=== PATIENT | female | born 1995 | race Caucasian/White ===

== ENCOUNTER → 2017-10-24 08:28 | Outpatient (CLI) | payer OTHER, SELFPAY ==
[2017-10-24 08:57] LABS: Hematocrit 38.3 % (37-47); Hemoglobin 12.6 g/dl (12.0-15.0); Mean Corp Hgb Conc 32.9 g/gl (32-36); Mean Corpuscular Hgb 28.7 pg (27.0-32.0); Mean Corpuscular Volume 87.2 fL (81-99); Mean Platelet Vol. 11.2 fl (6.2-12.0); Platelet Count 163 K/mm3 (150-450); RBC Distribution Width CV 12.4 % (11.6-14.6); RBC Distribution Width SD 40.1 fl (35.1-43.9); Red Blood Count 4.39 M/mm3 (4.2-5.4); White Blood Count 4.7 K/mm3 (4.4-11.0)
[2017-10-24 08:58] LABS: Scan Indicated on CBC? Y/N NO
[2017-10-24 09:09] LABS: Anion Gap 6 (5-15); BUN 12 mg/dL (7-18); BUN/Creat Ratio 20.8 RATIO (10-20); Calcium,Total 8.8 mg/dL (8.5-10.1); Chloride 109 mmol/L (98-107); Creatinine, Serum 0.58 mg/dL (0.55-1.02); EST Glomerular Filtration Rate 139 mL/min (>60); Est Glom Filt Rate - Afr Amer 168 mL/min (>60); Glucose 87 mg/dL (74-106); Sodium Level 143 mmol/L (136-145)
[2017-10-24 09:14] LABS: Pregnancy, Serum, hCG Quali. NEGATIVE Negative (0-9 Nonpreg)
--- NOTE | 2017-10-24 13:05 | PCM.TILTTABL ---
- Summary Pre Test Resting HR: 85 Pre Test Resting BP: 101/69 Minimum Test HR: 68 Maximum Test HR: 130 Minimum Test BP: 76/0 Maximum Test BP: 101/69 Physician Tilt Table Report - Patient's Physicians Primary Care Physician: Denilson Mcnair Indications/Diagnosis: Syncope Procedure Comments: Was brought into the noninvasive lab and the resting EKG demonstrated normal sinus rhythm with a rate of 78 bpm. The resting blood pressure was 106/68 mmHg. The patient was then put up in the head upright tilt position. After approximately 10 minutes the patient was noted to become pale and dropped her pressure to 76 cm of mercury as well as a heart rate of 110 bpm. Her heart rate then declined to approximately 60 bpm patient became pale and was put back to baseline and given intravenous fluids with improvement in the heart rate and blood pressure back to normal. In conclusion the heart rate was 87 bpm with a blood pressure 97/68 mmHg. Summary: Abnormal tilt table test with evidence of vasodepressor syncope.
[2017-10-24 13:16] VITALS: BP 101/69; BP 76/0
== END ==
PROVIDERS: Family Provider Family Medicine; PCP Family Medicine; Visit Provider Internal Medicine Cardiovascular Disease
DX: R55 Syncope and collapse (principal); R00.2 Palpitations
CPT/HCPCS: 36415; 80048; 84703; 85027; 93660; J7030; A4216

== ENCOUNTER → 2017-10-30 15:08 | Outpatient (CLI) | payer OTHER, SELFPAY ==
[2017-10-30 18:35] LABS: ALB/GLOB Ratio 1.3 RATIO (0.9-2.4); AST(SGOT) 17 U/L (15-37); Alanine Aminotransfer ALT/SGPT 21 U/L (13-56); Albumin, Serum 4.3 g/dL (3.2-5.0); Alkaline Phosphatase 51 U/L (45-117); Anion Gap 10 (5-15); BUN 11 mg/dL (7-18); BUN/Creat Ratio 19.6 RATIO (10-20); CRP < 2.90 mg/L (0.0-3.0); Calcium,Total 9.1 mg/dL (8.5-10.1); Chloride 105 mmol/L (98-107); Creatinine, Serum 0.56 mg/dL (0.55-1.02); EST Glomerular Filtration Rate 144 mL/min (>60); Est Glom Filt Rate - Afr Amer 174 mL/min (>60); Globulin 3.3 g/dL (2.2-4.2); Glucose 83 mg/dL (74-106); Potassium 3.6 mmol/L (3.5-5.1); Protein, Total 7.6 g/dL (6.4-8.2); Rheumatoid Factor < 10.0 IU/mL (<15); Sodium Level 140 mmol/L (136-145); Thyroid Stim Hormone (TSH) 1.66 uIU/mL (0.358-3.74)
[2017-10-30 18:38] LABS: Erythrocyte Sedimentation Rate 1 mm/hr (0-20); Vitamin D,25 Hydroxy 34.3 ng/mL (29.95-100.01)
[2017-11-01 15:27] LABS: ANTINUCLEAR ANTIBODIES DIRECT Negative (Negative)
== END ==
PROVIDERS: Family Provider Family Medicine; PCP Family Medicine; Visit Provider Family Medicine
DX: R53.83 Other fatigue (principal)
CPT/HCPCS: 36415; 80053; 82306; 82533; 84443; 85652; 86038; 86140; 86431

== ENCOUNTER → 2017-12-27 15:44 | Outpatient (CLI) | payer OTHER, SELFPAY ==
[2017-12-27 17:55] LABS: Anion Gap 7 (5-15); BUN 8 mg/dL (7-18); BUN/Creat Ratio 12.3 RATIO (10-20); Calcium,Total 8.9 mg/dL (8.5-10.1); Chloride 106 mmol/L (98-107); Creatinine, Serum 0.65 mg/dL (0.55-1.02); EST Glomerular Filtration Rate 121 mL/min (>60); Est Glom Filt Rate - Afr Amer 147 mL/min (>60); Glucose 72 mg/dL (74-106); Potassium 3.6 mmol/L (3.5-5.1); Sodium Level 141 mmol/L (136-145)
== END ==
PROVIDERS: Internal Medicine Cardiovascular Disease; Family Provider Family Medicine; PCP Family Medicine; Visit Provider Family Medicine
DX: I34.1 Nonrheumatic mitral (valve) prolapse (principal); R00.2 Palpitations; R55 Syncope and collapse
CPT/HCPCS: 36415; 80048

== ENCOUNTER → 2019-04-22 | Outpatient (CLI) | payer OTHER, SELFPAY ==
[2018-08-11 13:04] VITALS: BMI 20.9
--- NOTE | 2019-04-22 09:57 | RAD_ITS ---
STUDY: X-RAY CHEST REASON FOR EXAM: Female, 24 years old. Chest pain/pressure TECHNIQUE: 2 PA and lateral views of the chest. COMPARISON: 2010 FINDINGS: The lungs are clear and expanded. There is no demonstrated pleural abnormality. Normal size heart. Normal mediastinum and jadyn. Normal visualized pulmonary arteries. Normal visualized aortic arch and descending thoracic aorta. Normal visualized thoracic spine. Normal visualized ribs, clavicles, and shoulders. There is no demonstrated abnormality of the visualized soft tissue structures of the upper abdomen. RAD/Chest PA and Lateral IMPRESSION: Normal x-ray examination of the chest. Electronically Signed: Gil Matson MD at 16:56 EDT , Service support ,
== END | disposition home or self-care (01) ==
LOC: MTRAD 09:54
PROVIDERS: Family Provider Family Medicine; PCP Family Medicine; Referring Provider Family Medicine; Visit Provider Family Medicine
DX: J45.901 Unspecified asthma with (acute) exacerbation (principal)
CPT/HCPCS: 71046

== ENCOUNTER → 2019-07-07 15:06 | Outpatient (CLI) | payer OTHER, SELFPAY ==
[2018-08-11 13:04] VITALS: BMI 20.9
[2019-07-07 17:48] LABS: Vitamin D,25 Hydroxy 19.1 ng/mL (29.95-100.01)
[2019-07-07 18:02] LABS: Anion Gap 6 (5-15); BUN 10 mg/dL (7-18); BUN/Creat Ratio 17.2 RATIO (10-20); Calcium,Total 9.1 mg/dL (8.5-10.1); Chloride 111 mmol/L (98-107); Creatinine, Serum 0.58 mg/dL (0.55-1.02); EST Glomerular Filtration Rate 136 mL/min (>60); Est Glom Filt Rate - Afr Amer 165 mL/min (>60); Glucose 85 mg/dL (74-106); Potassium 3.9 mmol/L (3.5-5.1); Sodium Level 144 mmol/L (136-145)
== END ==
PROVIDERS: Family Provider Family Medicine; PCP Family Medicine; Referring Provider Family Medicine; Visit Provider Family Medicine
DX: E55.9 Vitamin D deficiency, unspecified (principal); R55 Syncope and collapse
CPT/HCPCS: 36415; 80048; 82306

== ENCOUNTER → 2020-12-22 | Outpatient (CLI) | payer OTHER, SELFPAY ==
[2020-08-31 14:23] VITALS: BMI 21.1
== END | disposition home or self-care (01) ==
PROVIDERS: PCP Family Medicine; Referring Provider Family Medicine; Visit Provider Family Medicine
DX: Z71.89 Other specified counseling (principal)
CPT/HCPCS: 87635; U0002

== ENCOUNTER → 2021-03-15 10:05 | Outpatient (CLI) | payer OTHER, SELFPAY ==
[2020-08-31 14:23] VITALS: BMI 21.1
[2021-03-15 12:25] LABS: Erythrocyte Sedimentation Rate < 1 mm/hr (0-30)
[2021-03-15 12:27] LABS: Absolute Lymphocyte Count 2.19 X10^3/uL (0.83-4.51); Absolute Neutrophil Count 4.3 X10^3/uL (2.0-7.7); Basophil# 0.04 X10^3/uL; Basophil% 0.6 % (0-1); Eosinophil# 0.04 X10^3/uL; Eosinophils% 0.6 % (0-5); Hematocrit 40.2 % (37-47); Hemoglobin 13.2 g/dL (12.0-15.0); Lymphocyte # 2.19 X10^3/ul (0.83-4.51); Mean Corp Hgb Conc 32.8 g/dL (32-36); Mean Corpuscular Hgb 28.5 pg (27.0-32.0); Mean Corpuscular Volume 86.8 fL (81-99); Mean Platelet Vol. 12.2 fl (6.2-12.0); Monocyte# 0.27 X10^3/uL; Monocyte% 3.9 % (0-10); NRBC Flagged by Analyzer 0 % (0-5); Neutrophil # 4.27 X10^3/uL (2.7-7.7); Neutrophil % 62.5 % (47-70); Platelet Count 212 K/mm3 (150-450); RBC Distribution Width CV 12.2 % (11.6-14.6); RBC Distribution Width SD 39.1 fl (35.1-43.9); Red Blood Count 4.63 M/mm3 (4.2-5.4); White Blood Count 6.8 K/mm3 (4.4-11.0)
[2021-03-15 12:30] LABS: Internal QC Validated? YES +Cl - CLEAR BKGD; Pregnancy, Serum, hCG Quali. NEGATIVE Negative
[2021-03-15 12:41] LABS: Vitamin B12 232 pg/mL (211-911); Vitamin D,25 Hydroxy 70.6 ng/mL
[2021-03-15 12:53] LABS: ALB/GLOB Ratio 1.1 RATIO (0.9-2.4); AST(SGOT) 16 U/L (15-37); Alanine Aminotransfer ALT/SGPT 18 U/L (13-56); Albumin, Serum 3.7 g/dL (3.2-5.0); Alkaline Phosphatase 45 U/L (45-117); Anion Gap 6 (5-15); BUN 9 mg/dL (7-18); BUN/Creat Ratio 12.8 RATIO (10-20); Calcium,Total 8.5 mg/dL (8.5-10.1); Chloride 107 mmol/L (98-107); EST Glomerular Filtration Rate 108 mL/min (>60); Est Glom Filt Rate - Afr Amer 131 mL/min (>60); Ferritin 24 ng/mL (8-252); Globulin 3.3 g/dL (2.2-4.2); Glucose 83 mg/dL (74-106); Iron 118 ug/dL (50-170); Potassium 3.9 mmol/L (3.5-5.1); Sodium Level 140 mmol/L (136-145); Thyroid Stim Hormone (TSH) 3.67 uIU/mL (0.358-3.74)
[2021-03-16 16:09] LABS: Endomysial Antibody IgA Negative (Negative)
[2021-03-17 11:07] LABS: Deamidated Gliadin IgA 6 units (0-19); Deamidated Gliadin IgG 3 units (0-19); Immunoglobulin A 97 mg/dL (87-352); t-Transglutaminase IgA <2 U/mL (0-3)
== END ==
PROVIDERS: PCP Family Medicine; Visit Provider Family Medicine
DX: R53.83 Other fatigue (principal); R11.0 Nausea
CPT/HCPCS: 80053; 82306; 82607; 82728; 82784; 83516; 83540; 84443; 84703; 85025; 85652; 86255

== ENCOUNTER 2021-08-28 11:26 | Outpatient (CLI) | payer BC, SELFPAY ==
[2021-08-30 20:20] LABS: HPV Reflexed? NOT INDICATED
== END 2021-08-28 23:59 | disposition short-term general hospital (02) ==
LOC: LABSPEC 11:27
PROVIDERS: PCP Family Medicine; Referring Provider Obstetrics & Gynecology; Visit Provider Obstetrics & Gynecology
DX: Z12.4 Encounter for screening for malignant neoplasm of cervix (principal)
CPT/HCPCS: 88175; G0145

== ENCOUNTER 2021-09-12 07:53 | Outpatient (CLI) | payer BC, SELFPAY ==
--- NOTE | 2021-09-12 07:57 | AAVD_ITS ---
Reason For Study: Abdominal pulsatile mass Aorta Measurements Aorta Doppler Measurements Proximal aorta measures1.31 x 1.32cm. in cross- Peak systolic flow velocities within the proximal sectional axis. aorta measure 144 cm/sec. Proximal aorta measures1.35cm. in longitudinal Peak systolic flow velocities within the mid aorta axis. measure 122 cm/sec. Mid aorta measures1.23 x 1.26cm. in cross- Peak systolic flow velocities within the distal sectional axis. aorta measure 91.3 cm/sec. Mid aorta measures1.20cm. in longitudinal axis. Distal aorta measures1.15cm. in cross-sectional axis. Left Iliac Artery Left iliac artery measures 0.75 x 0.76 cm. in the cross-sectional axis. Left iliac artery measures 0.77 cm. in the longitudinal axis. Peak systolic velocity in the left iliac artery measures 128.6 cm/sec. Right Iliac Artery Right iliac artery measures 0.63 x 0.63 cm. in the cross-sectional axis. Right iliac artery measures 0.64 cm. in the longitudinal axis. Peak systolic velocity in the right iliac artery measures 141.7 cm/sec. Procedure Aorta IVC Iliac vasculature or bypass grafts 06832. Exam performed in department. VL/Abd Aortic/IVC Duplex scan Interpretation Summary Maximal aortic diameter proximally at 1.31 x 1.32 cm in diameter Increased flow rate in the proximal abdominal aorta at 144 cm/s flow with no pl aque identified. Left common iliac 0.75 x 0.76 cm diameter which is normal Right common neck 0.63 x 0.63 cm in diameter which is normal Ordering Physician: Richard Mcmanus Referring Physician: Rigoberto Mcnair MD Performed By: Tri Nelson RVT
== END 2021-09-12 23:59 | disposition short-term general hospital (02) ==
PROVIDERS: PCP Family Medicine; Referring Provider Internal Medicine Cardiovascular Disease; Visit Provider Internal Medicine Cardiovascular Disease
DX: R19.00 Intra-abdominal and pelvic swelling, mass and lump, unspecified site (principal)
CPT/HCPCS: 93978

== ENCOUNTER → 2022-03-15 | Outpatient (CLI) | payer BC, SELFPAY ==
[2022-03-15 17:15] LABS: Amphetamine Urine VISTA NEGATIVE (<1000 ng/mL); Barbiturate Urine VISTA NEGATIVE (< 200 ng/mL); Benzodiazepine Urine VISTA NEGATIVE (< 200 ng/mL); Cocaine Urine VISTA NEGATIVE (< 300 ng/mL); Ecstacy Urine VISTA NEGATIVE (< 500 ng/mL); Methadone Urine VISTA NEGATIVE (< 300 ng/mL); PCP Urine VISTA NEGATIVE (< 25 ng/mL); THC Urine VISTA NEGATIVE (< 50 ng/mL); Vista UDS pH Range 8
[2022-03-19 01:06] LABS: Chlamydia By Nucleic Acid AMP Negative (Negative)
[2022-03-19 09:15] LABS: Gonococcus By Nucleic Acid AMP Negative (Negative)
== END | disposition home or self-care (01) ==
LOC: LABSPEC 16:10
PROVIDERS: PCP Family Medicine; Visit Provider Obstetrics & Gynecology
DX: Z34.90 Encounter for supervision of normal pregnancy, unspecified, unspecified trimester (principal)
CPT/HCPCS: 80307; 87086; 87088; 87491; 87591

== ENCOUNTER 2022-04-10 12:29 | Day surgery (SDC) | payer BC, SELFPAY ==
--- NOTE | 2022-04-10 09:19 | HP.PCM_ITS ---
History and Physical [facility] [address] [place] [address] OFFICE VISIT Date of Service:? 04/09/22 MR#: [id number] Acct: [id number] Name:EMY FERNANDES Rep #: [id number] : 1995 ? ? Provider: Dr. Kallie Estrada MD Age/Sex:? 27/F ? ? Location: [facility] [place] Status: Signed Intake Vital Signs ? 04/09/2216:04 04/09/2216:04 Height 5 ft 6 in 5 ft 6 in Weight: 139 lb ? BMI 22.4 ? BP 106/64 ? Intake Visit Reasons:?12 WK OB Chief Complaint: est ob [employer] Assessment Required: No Is patient in pain?: No Allergies pineapple Allergy (Mild, Verified 03/09/22 12:06) otherdiphenhydramine [From Benadryl] Adverse Reaction (Severe, Verified 03/09/22 12:06) Other Medications albuterol sulfate 90 mcg/actuation aerosol inhaler 1 - 2 puff inhalation Q6H PRN PRN Asthma 09/09/16 [History Confirmed 04/09/22] mometasone 220 mcg/actuation(120 doses)breath activated powder inhaler (Asmanex Twisthaler) 2 inh inhalation QPM PRN 08/11/18 [History Confirmed 04/09/22] cetirizine 10 mg capsule (Zyrtec) 10 mg PO DAILY PRN 08/31/19 [History Confirmed 04/09/22] cholecalciferol (vitamin D3) 50 mcg (2,000 unit) capsule 6,000 unit PO DAILY 08/31/19 [History Confirmed 04/09/22] fluticasone propionate 50 mcg/actuation nasal spray,suspension 50 mcg intranasal DAILY PRN 08/31/19 [History Confirmed 04/09/22] famotidine 20 mg tablet (Pepcid) 20 mg PO DAILY 07/28/20 [History Confirmed ] fludrocortisone 0.1 mg tablet 0.2 mg PO DAILY #180 tabs 11/06/21 [Rx Confirmed 04/09/22] PNV 178-FA 180 mcg-om3 35 mg-dha 25 mg-epa 5 mg-fish oil chew tablet tab PO 03/09/22 [History Confirmed 04/09/22] Last Menstral Period: 01/16/22 Zika: Zika virus screening: Negative : No PFSH PFSH Medical History? Abdominal pulsatile mass Anxiety Asthma GERD (gastroesophageal reflux disease) Mitral valve prolapse Palpitations Syncope and collapse Surgical History? Hx of appendectomy Family History? Grandmother CAD (coronary artery disease) Pancreatic cancerFather Mitral valve prolapse Social History? adopted:? No household members:? spouse housing:? house number of children:? 0 current occupational status:? 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 No pets and animals:? Yes pets and animals: dog(s) leisure activities:? exercise history of recent travel:? No sexually active:? Yes Smoking Status:? Never smoker alcohol intake:? never substance use type:? does not use diet:? gluten free well-balanced diet:? daily or most days caffeine:? Yes Type: coffee Number of servings: 1 eating out:? rarely or never what type of physical activity do you participate in:? walking and aerobics frequency:? daily duration:? 15-30 minutes/day estrella/judaism:? Christianity seatbelt use:? always do you feel safe at home:? 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 ? ? 1 ? Elective abortions ? Hx Para ? ? ? 0 ? Spontaneous abortions ? Hx # Term Pregnancies ? Ectopic pregnancies ? Hx # Pregnancies ? Multiple births ? # of living children ? HPI 12 WK OB Details: EMY JARVIS is a 27 year old who presents for routine OB visit. upon evaluation bedside ultrasound confirmed missed is made.? patient denies any miscarriage symptoms or bleeding abnormal cramping. OB Visit SUJEY Calculator ? Estimated Delivery Date Method Current WG Current Estimate 10/23/22 LMP (Certain) 11w 6d Expected Delivery Route/Plan Labor Preferences- CB/BF classes: [] labor support person: [] labor intervention preferences: [] pain management options preferred: [] cut cord/dad catch: [] : [] PP control planned: [] discussed possible routes of delivery and associated risks: [] special requests: [] Specific Issue/Plans Covid status: discussed Flu vaccine:discussed Tdap vaccine: [] Rhogam: [] LARC form signed: [] Problem list reviewed and updated with the most current plan of care details and appropriate orders placed.? Relevant counseling for the gestational age provided. Continue routine care and follow up unless otherwise noted in visit notes/problem list details Initial Weight:?Not Recorded Date -?-?-?-?-?-?-?-?-?-?-?-?- EGA Weight BP Urine Prot -?-?-?-?-?-?-?-?-?-?-?-?- Glucose FHR FuHt Pres Dilation -?-?-?-?-?-?-?-?-?-?-?-?- Effaced St Visit Note 03/15/22-?-?-?-?-?-?-?-?-?-?-?-?- 8w 2d 141 lb 119/80 -?-?-?-?-?-?-?-?-?-?-?-?- ? 160 ? ? -?-?-?-?-?-?-?-?-?-?-?-?- ? ? Sm- CRL cons with LMP Sm- CRL 1.49cm cons with LMP 04/09/22-?-?-?-?-?-?-?-?-?-?-?-?- 11w 6d 139 lb 106/64 -?-?-?-?-?-?-?-?-?-?-?-?- ? -?-?-?-?-?-?-?-?-?-?-?-?- ? ? SM- no vb cramping- Ultrasound done and CRL 8w6d measuring with no FHT and no color doppler flow seen. ACOG First Trimester First Trimester: Discussed Diagnostics Diagnostics Diagnostics: ?? ? Hgb 13.2 g/dL (12.0-15.0) ?? ? Hct 40.2 % (37-47) ?? ? Chlamydia DNA (MAGNO) Negative? (Negative) ?? ? N.gonorrhoeae DNA (MAGNO) Negative? (Negative) Details: HIV: Urine Culture: Sequential Screen: NIPT Screen: ROS Const Denies excessive sweating, Denies fatigue, Denies night sweats, Denies weight gain and Denies weight loss ENT Reports system reviewed and no additional complaints, except as documented Card Denies chest pain and Denies dyspnea Resp Denies cough and Denies dyspnea GI Reports as per HPI, Denies abdominal pain, Denies constipation, Denies nausea and Denies vomiting Denies nipple discharge, Denies urinary frequency, Denies urinary incontinence, Denies urinary hesitancy, Denies urinary urgency, Denies vaginal discharge, Denies vaginal dryness, Denies vaginal odor and Denies vaginal pruritus Musc Denies arthralgias, Denies back pain and Denies muscle weakness Skin/Breast Denies alopecia, Denies change in hair, Denies dry skin, Denies breast mass, Denies breast pain, Denies breast skin changes and Denies nipple discharge Neuro Yes system reviewed and no additional complaints, except as documented Psych Reports system reviewed and no additional complaints, except as documented Endo Denies cold intolerance, Denies excessive sweating, Denies fatigue, Denies heat intolerance and Denies polydipsia Boubacar/Lymph Denies easy bleeding, Denies easy bruising and Denies lymphadenopathy Exam Const General: cooperative, healthy appearing, comfortable, no acute distress and well developed Orientation: alert [facility] Head: normal to inspection and normocephalic Ears: hearing grossly normal bilaterally and external ears normal Nose: external nose normal and nares normal Face and sinus: normal facial exam Neck Neck: normal visual inspection and no lymphadenopathy Thyroid: thyroid normal Chest Chest palpation & inspection: normal inspection of the chest Resp Effort & Inspection: normal respiratory effort GI Inspection: normal to inspection and non-distended Palpation: soft and no hepatosplenomegaly Musc Other: gross motor intact no deficits, full bilateral strength Skin General: no rashes or lesions noted Neuro General: patient alert, patient awake, moves all extremities and no focal motor deficits Motor: muscle tone normal throughout Extrem General: normal to inspection and no pedal edema Psych Appearance: grossly normal Mental Status: mental status grossly normal Affect: normal affect Speech and Movement: speech and movement normal Coding Level of Care Code Off vis,est,level 4 Diagnoses Mitral valve disorder during , antepartum? O99.419; I05.9 ? Z3A.11 ? ? ? Weeks of gestation: 11 weeks Supervision of high risk , antepartum? O09.90 Missed ? O02.1 Assessment and Plan Assessment and Plan (1) Mitral valve disorder during , antepartum: ?Status:?Acute ?Comment: mitral valve prolapse, syncope, on low dose fludrocortisone- discussed switching to another medication if possible, will discuss with cardio.? Pt encouraged to stop taking rx (2) : ?Status:?Acute ?Qualifiers: ?Weeks of gestation:?11 weeks? Qualified Code(s):?Z3A.11 - 11 weeks gestation of ?Comment: discussed NIPT & Carrier testing (3) Supervision of high risk , antepartum: ?Status:?Acute ?Comment: , SUJEY 10/23/22, Spouse Patel (4) Missed : ?Status:?Acute ?Comment: discussed medical vs surgical options. Plan reivewed options of medical vs surgical management.? patient to decide will call her tomorrow. 04/09/22 2043 <Electronically signed by Kallie Estrada MD> Date Kallie Estrada MD Cosigner Signature: Date (if applicable) ? CC: ? ~ UPDATE- I have seen the patient and performed any clinically relevant updates to the history and physical exam. Kallie Estrada MD
[2022-04-10] MEDS: Doxycycline 100 MG CAPSULE PO (11:00)
[2022-04-10 13:38] VITALS: BP 107/73; PULSE 80; RESP 16; TEMP 37.6; O2SAT 100; BMI 21.7
[2022-04-10 13:39] LABS: Hematocrit 39.9 % (37-47); Hemoglobin 13.8 g/dL (12.0-15.0); Mean Corp Hgb Conc 34.6 g/dL (32-36); Mean Corpuscular Hgb 29.5 pg (27.0-32.0); Mean Corpuscular Volume 85.3 fL (81-99); Mean Platelet Vol. 11.7 fl (6.2-12.0); Platelet Count 199 K/mm3 (150-450); RBC Distribution Width CV 12.4 % (11.6-14.6); RBC Distribution Width SD 38.1 fl (35.1-43.9); Red Blood Count 4.68 M/mm3 (4.2-5.4); White Blood Count 8.7 K/mm3 (4.4-11.0)
[2022-04-10] MEDS: Lactated Ringers 1,000 ML 15 ML IV (13:52)
[2022-04-10] MEDS: Lidocaine 1% (20 ml mdv) 20 ML Vial (15:18)
--- NOTE | 2022-04-10 15:38 | PCM.OPRPT ---
Problems Associated Problem List Diagnoses (1) Missed : Report of Operation Date of Procedure: 04/10/22 Pre-Operative Diagnosis: see problem list Post-Operative Diagnosis: same Surgery/Procedure Performed:: Suction dilation and curettage Description of Surgical Findings:: no FHT present, Nonviable 9 weeks Surgeon: Kallie Estrada ediscovery project manager: None Type of Anesthesia: Local MAC Special Medications: none Specimen's removed: POC Drains: none Estimated Blood Loss (mL): 100 Fluids Replaced: crystalloid Description of Procedure: Patient was taken to the operating room and placed under MAC local anesthesia. She was prepped and draped in the normal sterile fashion the dorsal lithotomy position. Bladder was drained of clear urine and anterior lip of the cervix was grasped and the uterus sounded to 10cm. Cervix was progressively dilated to allow passage of a 10mm suction curette. Progressive passes were made removing the retained products of conception without complication. Sharp curettage confirmed complete removal of the retained products. All instruments were removed from the vagina and excellent hemostasis was noted and the patient was taken to recovery in stable condition. Grafts/Implants Used: none Complications none Admit VTE Documentation VTE Present on Admission: No VTE Mechan Device Prophylaxis: SCD's Multi Select Codes Urinary/Genital Urinary/Genital CPT Codes: 05762 Surg Trtmt missed Ab 1TM
--- NOTE | 2022-04-10 15:41 | DCINST_ITS ---
Discharge Instructions Procedure D&C Diet Discharge Diet: No restrictions Activity Discharge Activity: Return to Normal Activity, May Shower and May Take a Tub Bath (after 1 week) May resume sexual activity in: 1-2 weeks Weight Bearing Status: Weight bearing as tolerated Lifting Restrictions: none Dressing / Incision Call your doctor if you observe: Fever of 101 or Higher, Using more than 1 pad per hour, Shortness of breath and Uncontrolled pain Follow Up Care Please Follow Up With: Kallie Estrada MD When: Call [phone] to schedule appointment. Test Results: Test results from this visit will be discussed in further detail at your follow- up appointment, if applicable. Discharge Plan Admission Attending Provider: Kallie Estrada Primary Care Provider: Denilson Mcnair Discharge Orders/Prescriptions Prescriptions: No Action mometasone 220 mcg (120 doses) breath activated powder inhaler 220 mcg (120 doses) aerosol powdr breath activated 2 inh INHALATION QPM PRN fluticasone propionate 50 mcg/actuation spray,suspension 50 mcg INTRANASAL DAILY PRN cholecalciferol (vitamin D3) 50 mcg (2,000 unit) capsule 6,000 unit PO DAILY Zyrtec 10 mg capsule 10 mg PO DAILY PRN famotidine [Pepcid] 20 mg tablet 20 mg PO DAILY PNV [id number] 180 mcg-35 mg- 25 mg-5 mg tablet,chewable PO albuterol sulfate 1 INHALER inhaler 1 - 2 puff INHALATION Q6H PRN PRN (Reason: Asthma) fludrocortisone 0.1 mg tablet 0.2 mg PO DAILY Qty: 180 4RF Referrals / Follow Up: Denilson Mcnair MD [Primary Care Provider] - Disposition Disposition (needs filled in before D/C Order can be placed): Home, Self Care
--- NOTE | 2022-04-10 15:45 | POC_PTH ---
PATIENT: EMY JARVIS LOC: [facility] [place] U#:[id number] AGE/SX: 27/ ROOM: RE04/10/[address]: Dr. Kallie Estrada MD : 1995 BED: DIS: 04/10/2022 SPEC #: [id number] RECD: 04/10/22 16:04 STATUS: ALYCIA WALLER #: [id number] RICK: 04/10/22 15:[address]: Kallie Estrada DEPT: SURGICAL PATHOLOGY RECD BY: Caitie Hutchison ENTERED: 04/11/22 11:50 SP TYPE: PROD CONC OTHR DR: Dr. Rigoberto Mcnair MD Tissues: Product of conception, NOS Procedures: Surgery Specimen Level IV HEADER OPERATION: Dilation and curettage, suction PRE-OP DIAGNOSIS: Missed TISSUE SUBMITTED: Products of conception MICROSCOPIC DIAGNOSIS Endometrium, curettage: Chorionic villi, decidualized stroma and trophoblastic cells consistent with products of conception. See Comment. AM:am COMMENT Significant number of villi show hydropic change. A partial mole cannot be ruled out. Clinical correlation and appropriate follow up are necessary. Case has been reviewed in consultation with Dr. Arellano who concurs with the above diagnosis. IDC:SJ MICROSCOPIC DESCRIPTION Slides are reviewed. GROSS DESCRIPTION Received is one container labeled with the patient name and designated products of conception. The specimen consists an oriented fragment of rubbery lopez-pink soft tissue measuring 7.0 x 7.0 x 3.5cm and weighing 85.0grams. The specimen is inked as follows: anterior-yellow, posterior-black, medial-red, lateral-orange, super-blue and inferior-green. Sectioning reveals rubbery pin-white cut surfaces. No distinct mass lesion is identified. Rn Security sections are submitted in 10 cassettes after additional fixation as follows: 1&2-inked margins, 3-10 veterans service representative sections taken medial to lateral. / AM:james 04/11/22 TC:5 CPT:86571
[2022-04-10 15:46] VITALS: BP 107/43; BP 92/69; PULSE 95; RESP 16; TEMP 36.6; O2SAT 100
[2022-04-10 15:50] VITALS: BP 103/69; BP 107/43; PULSE 85; RESP 16; O2SAT 100
[2022-04-10 15:55] VITALS: BP 106/68; BP 107/43; PULSE 73; RESP 16; O2SAT 100
[2022-04-10 16:05] VITALS: BP 107/43; BP 98/68; PULSE 91; RESP 16; TEMP 36.7; O2SAT 100
[2022-04-10 17:05] VITALS: BP 107/43; BP 93/62; PULSE 80; RESP 16; TEMP 37.2; O2SAT 100
== END 2022-04-10 17:05 | disposition home or self-care (01) ==
LOC: SDC 12:31 → AC 12:32
PROVIDERS: PCP Family Medicine; Referring Provider Obstetrics & Gynecology; Visit Provider Obstetrics & Gynecology
PROC: (CPT 59820; principal; 2022-04-10 15:30)
DX: O02.1 Missed abortion (principal); O99.411 Diseases of the circulatory system complicating pregnancy, first trimester; Z3A.11 11 weeks gestation of pregnancy; K21.9 Gastro-esophageal reflux disease without esophagitis; I05.9 Rheumatic mitral valve disease, unspecified; Z90.49 Acquired absence of other specified parts of digestive tract
CPT/HCPCS: 59820; 01965; 85027; 86850; 86900; 86901; 88305; J7120; J2405

== ENCOUNTER → 2022-06-20 | Outpatient (CLI) | payer BC, SELFPAY ==
[2022-06-20 13:58] LABS: hCG Titer Quant., Serum 199 mIU/mL (1-3)
== END | disposition home or self-care (01) ==
LOC: WOBLAB 12:54
PROVIDERS: PCP Family Medicine; Visit Provider Obstetrics & Gynecology
DX: N91.2 Amenorrhea, unspecified (principal)
CPT/HCPCS: 36415; 84702

== ENCOUNTER → 2022-06-22 | Outpatient (CLI) | payer BC, SELFPAY ==
[2022-06-22 13:51] LABS: hCG Titer Quant., Serum 439 mIU/mL (1-3)
== END | disposition home or self-care (01) ==
LOC: WOBLAB 12:44
PROVIDERS: PCP Family Medicine; Visit Provider Obstetrics & Gynecology
DX: N91.2 Amenorrhea, unspecified (principal)
CPT/HCPCS: 36415; 84702

== ENCOUNTER → 2022-07-03 | Outpatient (CLI) | payer BC, SELFPAY ==
--- NOTE | 2022-07-03 14:52 | US_ITS ---
STUDY: FIRST TRIMESTER OBSTETRICAL ULTRASOUND REASON FOR EXAM: Female, 27 years old. viability -- do at 6-7 weeks of gestation TECHNIQUE: Transvaginal US was obtained to better visualized the ovaries. TECHNICAL QUALITY: Adequate. PRIOR ULTRASOUND: None. FINDINGS: There is visualization of a single gestational sac in a normal intrauterine position. The mean sac diameter (MSD) measures 17 mm, indicating an estimated gestational age (EGA) of 6 weeks, 4 days. The gestational sac shape is within normal limits. There is two visualized yolk sac. The yolk sac A measures 3 mm. Yolk sac for B is 3mm. The placenta is non-visualized. Due to early gestation, the placenta is not seen. There is visualization of a live embryo. The crown-rump length (CRL) measures 5 mm, indicating an estimated gestational age (EGA) of 6 weeks, 3 days. There is demonstrated cardiac activity with a heart rate of 107 bpm. The estimated gestation age (EGA) by LMP is 6 weeks, 0 days. The estimated date of delivery (SUJEY) by LMP is 7.4.23. The estimated gestation age (EGA) by US is 6 weeks, 4 days. The estimated date of delivery (SUJEY) by US is 6.30.23. The uterus measures 7.3 cm. There is no demonstrated uterine fibroid. The cervix is closed. The right ovary measures 2.7 cm. There is no right ovarian cyst. There is no visualized right adnexal mass or complex lesion. The left ovary measures 3.4 cm. There is no left ovarian cyst. There is no visualized left adnexal mass or complex lesion. There is no fluid in the cul de sac. US/Transvaginal w/Preg US IMPRESSION: There is a single live intrauterine with a heart rate of 107 bpm. Single gestational sac. Two yolk sac. No visible 2nd fetus. Electronically Signed: John Walker MD at 16:47 EST ,
== END | disposition home or self-care (01) ==
LOC: US 14:50
PROVIDERS: PCP Family Medicine; Referring Provider Obstetrics & Gynecology; Visit Provider Obstetrics & Gynecology
DX: Z87.59 Personal history of other complications of pregnancy, childbirth and the puerperium (principal); Z3A.01 Less than 8 weeks gestation of pregnancy
CPT/HCPCS: 76817

== ENCOUNTER → 2022-07-10 | Outpatient (CLI) | payer BC, SELFPAY ==
--- NOTE | 2022-07-10 12:37 | US_ITS ---
STUDY: FIRST TRIMESTER OBSTETRICAL ULTRASOUND REASON FOR EXAM: Female, 27 years old viability LMP: TECHNIQUE: Transabdominal TECHNICAL QUALITY: Adequate. PRIOR ULTRASOUND: None. FINDINGS: There is visualization of a gestational sac in a normal intrauterine position. The mean sac diameter (MSD) measures 2.66 cm, indicating an estimated gestational age (EGA) of 7 weeks, 5 days. The gestational sac shape is within normal limits. There is a visualized yolk sac. The placenta is non-visualized. There is visualization of a live embryo. The crown-rump length (CRL) measures 1 cm, indicating an estimated gestational age (EGA) of 7 weeks, 1 days. There is demonstrated cardiac activity with a heart rate of 137 bpm. The estimated gestation age (EGA) by LMP is 7 weeks, 0 days. The estimated date of delivery (SUJEY) by LMP is 02/26/2023. The estimated gestation age (EGA) by US is 7 weeks, 3 days. The estimated date of delivery (SUJEY) by US is 02/23/2023. The uterus measures 8.38 x 4.51 cm. There is no demonstrated uterine fibroid. The cervix is closed. The right ovary measures 3.22 x 1.43 cm tThere is no right ovarian cyst. There is no visualized right adnexal mass or complex lesion. The left ovary measures 2.56 x 1.89 cm. There is no left ovarian cyst. There is no visualized left adnexal mass or complex lesion. There is no fluid in the cul de sac. There is a second intrauterine gestational sac which contains a yolk sac but no pole. 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 Recommend clinical correlation and follow-up studies Electronically Signed: Geronimo Valenzuela MD at 21:08 EST ,
== END | disposition home or self-care (01) ==
LOC: US 12:35
PROVIDERS: PCP Family Medicine; Referring Provider Obstetrics & Gynecology; Visit Provider Obstetrics & Gynecology
DX: O36.80X0 Pregnancy with inconclusive fetal viability, not applicable or unspecified (principal)
CPT/HCPCS: 76817

== ENCOUNTER → 2022-07-18 | Outpatient (CLI) | payer BC, SELFPAY ==
[2022-07-18 15:07] LABS: Amphetamine Urine VISTA NEGATIVE (<1000 ng/mL); Barbiturate Urine VISTA NEGATIVE (< 200 ng/mL); Benzodiazepine Urine VISTA NEGATIVE (< 200 ng/mL); Cocaine Urine VISTA NEGATIVE (< 300 ng/mL); Ecstacy Urine VISTA NEGATIVE (< 500 ng/mL); Methadone Urine VISTA NEGATIVE (< 300 ng/mL); PCP Urine VISTA NEGATIVE (< 25 ng/mL); THC Urine VISTA NEGATIVE (< 50 ng/mL); Vista UDS pH Range 7
[2022-07-23 21:07] LABS: Chlamydia By Nucleic Acid AMP Negative (Negative)
[2022-07-24 14:56] LABS: Gonococcus By Nucleic Acid AMP Negative (Negative)
== END | disposition home or self-care (01) ==
LOC: LABSPEC 14:35
PROVIDERS: PCP Family Medicine; Visit Provider Obstetrics & Gynecology
DX: O09.90 Supervision of high risk pregnancy, unspecified, unspecified trimester (principal)
CPT/HCPCS: 80307; 87086; 87088; 87491; 87591

== ENCOUNTER → 2022-08-17 | Outpatient (CLI) | payer BC, SELFPAY ==
[2022-08-17 13:39] LABS: Absolute Lymphocyte Count 1.96 X10^3/uL (0.83-4.51); Absolute Neutrophil Count 6.4 X10^3/uL (2.0-7.7); Basophil# 0.03 X10^3/uL; Basophil% 0.3 % (0-1); Eosinophil# 0.05 X10^3/uL; Eosinophils% 0.6 % (0-5); Hematocrit 36.6 % (37-47); Hemoglobin 12.5 g/dL (12.0-15.0); Lymphocyte # 1.96 X10^3/ul (0.83-4.51); Lymphocyte % 22.6 % (19-41); Mean Corp Hgb Conc 34.2 g/dL (32-36); Mean Corpuscular Hgb 28.7 pg (27.0-32.0); Mean Corpuscular Volume 83.9 fL (81-99); Mean Platelet Vol. 11.7 fl (6.2-12.0); Monocyte# 0.26 X10^3/uL; NRBC Flagged by Analyzer 0 % (0-5); Neutrophil # 6.35 X10^3/uL (2.7-7.7); Neutrophil % 73.3 % (47-70); Platelet Count 203 K/mm3 (150-450); RBC Distribution Width CV 12.3 % (11.6-14.6); RBC Distribution Width SD 37.5 fl (35.1-43.9); Red Blood Count 4.36 M/mm3 (4.2-5.4); White Blood Count 8.7 K/mm3 (4.4-11.0)
[2022-08-17 15:44] LABS: HIV - WCH Non-Reactive (Nonreactive); Hepatitis B Surface Antigen Non-Reactive (Nonreactive); Hepatitis C Antibody Non-Reactive (Nonreactive); Rubella IgG Reactive (Nonreactive); Syphilis Antibodies Non-reactive
== END | disposition home or self-care (01) ==
LOC: WOBLAB 13:12
PROVIDERS: Obstetrics & Gynecology; PCP Family Medicine; Visit Provider Obstetrics & Gynecology
DX: Z34.90 Encounter for supervision of normal pregnancy, unspecified, unspecified trimester (principal)
CPT/HCPCS: 36415; 85025; 86703; 86762; 86780; 86803; 86850; 86900; 86901; 87340

== ENCOUNTER → 2022-09-17 | Outpatient (CLI) | payer BC, SELFPAY | END | disposition home or self-care (01) | PROVIDERS: PCP Family Medicine; Visit Provider Registered Nurse | DX: Z36.9 Encounter for antenatal screening, unspecified (principal) | CPT/HCPCS: 36415 ==

== ENCOUNTER → 2022-12-03 | Outpatient (CLI) | payer BC, SELFPAY ==
[2022-12-03 13:38] LABS: Absolute Lymphocyte Count 1.23 X10^3/uL (0.83-4.51); Absolute Neutrophil Count 6.6 X10^3/uL (2.0-7.7); Basophil# 0.02 X10^3/uL; Basophil% 0.2 % (0-1); Eosinophil# 0.04 X10^3/uL; Eosinophils% 0.5 % (0-5); Hematocrit 32.1 % (37-47); Hemoglobin 10.6 g/dL (12.0-15.0); Lymphocyte # 1.23 X10^3/ul (0.83-4.51); Mean Corpuscular Hgb 29.4 pg (27.0-32.0); Mean Corpuscular Volume 88.9 fL (81-99); Mean Platelet Vol. 12.5 fl (6.2-12.0); Monocyte# 0.29 X10^3/uL; Monocyte% 3.5 % (0-10); NRBC Flagged by Analyzer 0 % (0-5); Neutrophil # 6.55 X10^3/uL (2.7-7.7); Neutrophil % 80.1 % (47-70); Platelet Count 183 K/mm3 (150-450); RBC Distribution Width CV 13.1 % (11.6-14.6); RBC Distribution Width SD 42.5 fl (35.1-43.9); Red Blood Count 3.61 M/mm3 (4.2-5.4); White Blood Count 8.2 K/mm3 (4.4-11.0)
[2022-12-03 13:43] LABS: Glucose Challenge Gest 1H 50g 108 mg/dL (70-140)
[2022-12-03 14:22] LABS: HIV - WCH Non-Reactive (Nonreactive); Syphilis Antibodies Non-reactive
== END | disposition home or self-care (01) ==
LOC: WOBLAB 12:05
PROVIDERS: PCP Family Medicine; Visit Provider Obstetrics & Gynecology
DX: O09.90 Supervision of high risk pregnancy, unspecified, unspecified trimester (principal)
CPT/HCPCS: 36415; 82950; 85025; 86703; 86780

== ENCOUNTER 2023-01-15 20:50 | Outpatient (CLI) | payer BC, SELFPAY ==
[2023-01-15 21:04] VITALS: BMI 26.9
[2023-01-15 21:14] VITALS: PULSE 119; O2SAT 97
[2023-01-15 21:15] VITALS: BP 123/59; PULSE 109
[2023-01-15 21:25] VITALS: TEMP 36.6
[2023-01-15 22:00] LABS: Color, Urine Yellow (Yellow); Glucose, Dipstick Normal (Normal); Ketone-Dipstick 15 mg/dl (Negative); Leukocyte Esterase-Dipstick Negative /ul (Negative); Nitrite-Dipstick Negative (Negative); Occult Blood-Urine Negative /ul (Negative); Protein-Dipstick Negative (Negative); Specific Gravity, Urine 1.005 (1.002-1.030); Urine Bilirubin Dipstick Negative (Negative); Urine Clarity Sl. Cloudy (Clear); Urine Urobilinogen Normal (Normal)
--- NOTE | 2023-01-15 22:54 | OB.TRI.HP_ITS ---
HPI - General General Date of Service: 01/15/23 HPI Narrative EMY JARVIS, is a 27 F at 34 weeks who presents to L&D for complaints of mild-moderate contractions q 6-10 minutes apart that started earlier today. Maternal Data Information SUJEY Calculator Estimated Delivery Date Method Current WG Current Estimate 02/26/23 LMP (Certain) 34w 0d Final SUJEY: 02/26/23 Final SUJEY Source: [place] >20 weeks Gestational age: 34.0 weeks PFSH PFSH Medical History (Updated 01/15/23 @ 23:00 by Chanel Dean CNM) Abdominal pulsatile mass Anxiety Asthma Gastric reflux GERD (gastroesophageal reflux disease) Mild anemia Missed Mitral valve prolapse Non-smoker Palpitations Syncope and collapse Home Medications mometasone 220 mcg/actuation(120 doses)breath activated powder inhaler (Asmanex Twisthaler) 2 inh inhalation QPM PRN asthma 08/11/18 [History Last Taken Unknown] cholecalciferol (vitamin D3) 50 mcg (2,000 unit) capsule 6,000 unit PO DAILY 08/31/19 [History Last Taken 01/14/23 21:00] PNV 178-FA 180 mcg-om3 35 mg-dha 25 mg-epa 5 mg-fish oil chew tablet 1 tab PO DAILY 03/09/22 [History Last Taken 01/14/23 21:00] doxylamine succinate 25 mg tablet (Unisom (doxylamine)) 12.5 mg PO QHS PRN sleep aid 07/10/22 [History Last Taken 01/14/23 21:00] pyridoxine (vitamin B6) 25 mg tablet 25 mg PO DAILY 07/10/22 [History Last Taken 01/14/23 21:00] famotidine 40 mg tablet (Pepcid) 40 mg PO DAILY #90 tabs 08/16/22 [Rx Last Taken 01/14/23 21:00] ferrous sulfate 325 mg (65 mg iron) tablet 325 mg PO DAILY 12/07/22 [History Last Taken 01/14/23 18:00] Allergy/AdvReac Type Severity Reaction Status Date / Time pineapple Allergy Mild other Verified 01/15/23 21:20 diphenhydramine AdvReac Severe Other Verified 01/15/23 21:20 [From Ludin] Family History Grandmother CAD (coronary artery disease) Pancreatic cancer Father Mitral valve prolapse Surgical History Hx of appendectomy Hx of dilation and curettage Social History adopted: No household members: spouse housing: house number of children: 0 current occupational status: employed current occupation: [employer] current occupational exposures/hazards: No pets and animals: Yes pets and animals: dog(s) leisure activities: exercise history of recent travel: No sexually active: Yes Smoking Status: Never smoker alcohol intake: never substance use type: does not use diet: gluten free well-balanced diet: daily or most days caffeine: No eating out: rarely or never during the past year weight has: remained stable what type of physical activity do you participate in: bicycling frequency: daily duration: 15-30 minutes/day estrella/sabianist: [employer] seatbelt use: always do you feel safe at home: Yes additional social history: 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 Elective abortions Hx Para 0 Spontaneous abortions 1 Hx # Term Pregnancies Ectopic pregnancies Hx # Pregnancies Multiple births # of living children Visit Details Expected Delivery Route/Plan Labor Preferences- CB/BF classes: yes, took just breathe labor support person: patel labor intervention preferences: pain management options preferred: [] cut cord/dad catch: [] : [] PP control planned: [] discussed possible routes of delivery and associated risks: [] special requests: [] Plans Covid status: discussed Flu vaccine: discussed Tdap vaccine: discussed Rhogam:na LARC form signed: declined movement and labor precautions reviewed. Problem list reviewed and updated with the most current plan of care details and appropriate orders placed. Relevant counseling for the gestational age provided. Continue routine care and follow up unless otherwise noted in visit notes/problem list details OB Flowsheet Initial Weight: Not Recorded Date -?-?-?-?-?-?-?-?-?-?-?-?- EGA Weight BP Urine Prot -?-?-?-?-?-?-?-?-?-?-?-?- Glucose FHR FuHt Pres Dilation -?-?-?-?-?-?-?-?-?-?-?-?- Effaced St Visit Note 07/18/22 -?-?-?-?-?-?-?-?-?-?-?-?- 8w 1d 146 lb 4 oz 134/71 -?-?-?-?-?-?-?-?-?-?-?-?- 158 -?-?-?-?-?-?-?-?-?-?-?-?- JV- single live IUP consistent with LMP. pt had 2 other reports had 2 other exams 08/16/22 -?-?-?-?-?-?-?-?-?-?-?-?- 12w 2d 147 lb 124/78 Negative -?-?-?-?-?-?-?-?-?-?-?-?- Negative 157 -?-?-?-?-?-?-?-?-?-?-?-?- JV- no cramping or bleeding. bedside scan to confirm heartones. rx for reglan and pepcid sent to pharmacy 09/14/22 -?-?-?-?-?-?-?-?-?-?-?-?- 16w 3d 148 lb 8 oz 111/76 -?-?-?-?-?-?-?-?-?-?-?-?- 143 -?-?-?-?-?-?-?-?-?-?-?-?- LC-no vb/crampin g. afp discussed and accepted. having dizzy spells at work. will increase protein/sodium. BP stable. 10/12/22 -?-?-?-?-?-?-?-?-?-?-?-?- 20w 3d 150 lb 6 oz 111/76 Nega tive -?-?-?-?-?-?-?-?-?-?-?-?- Negative 145 20 -?-?-?-?-?-?-?-?-?-?-?-?- SM- no vb crmapi ng doing well 11/08/22 -?-?-?-?-?-?-?-?-?-?-?-?- 24w 2d 156 lb 105/72 Negative -?-?-?-?-?-?-?-?-?-?-?-?- Negative 157 24 -?-?-?-?-?-?-?-?-?-?-?-?- JV- notes from [facility] reviewed. no concerns. GCT ordered. pt is having a boy! 12/07/22 -?-?-?-?-?-?-?-?-?--?-?-?- 28w 3d 162 lb 2 oz 109/76 Nega tive -?-?-?-?-?-?-?-?-?-?-?-?- Negative 150 28 Breech -?-?-?-?-?-?-?-?-?-?-?-?- SM- no vb lof go od fm no regular ctx 01/03/23 -?-?-?-?-?-?-?-?-?-?-?-?- 32w 2d 165 lb 2 oz 110/70 Nega tive -?-?-?-?-?-?-?-?-?-?-?-?- Negative 150 33 -?-?-?-?-?-?-?-?-?-?-?-?- SM- no vb lof go od fm no regular ctx 01/15/23 -?-?-?-?-?-?-?-?-?-?-?-?- 34w 0d 166 lb 9.6 oz 123/59 Ne gative mg/dl (Negative) -?-?-?-?-?-?-?-?-?-?-?-?- -?-?-?-?-?-?-?-?-?-?-?-?- ROS Constitutional Constitutional: Reports systems reviewed and no addt'l complaints, except as documented Cardiovascular Cardiovascular: Reports systems reviewed and no addt'l complaints, except as documented Respiratory/Chest Respiratory/Chest: Reports systems reviewed and no addt'l complaints, except as documented Gastrointestinal Gastrointestinal: Reports systems reviewed and no addt'l complaints, except as documented Genitourinary Genitourinary: Reports systems reviewed and no addt'l complaints, except as documented Musculoskeletal Musculoskeletal: Reports systems reviewed and no addt'l complaints, except as documented Integumentary Integumentary: Reports systems reviewed and no addt'l complaints, except as documented Neurologic Neurologic: Reports systems reviewed and no addt'l complaints, except as documented Psychiatric Psychiatric: Reports systems reviewed and no addt'l complaints, except as documented Endocrine Endocrinology: Reports systems reviewed and no addt'l complaints, except as documented Hematologic/Lymphatic Hematologic/Lymphatic: Reports systems reviewed and no addt'l complaints, except as documented Allergic/Immunologic Allergic/Immunologic: Reports systems reviewed and no addt'l complaints, except as documented Physical Exam Const General Appearance: cooperative and comfortable Neck full ROM Resp normal respiratory effort, no retractions and no use of accessory muscles GI normal to inspection, nondistended, normoactive bowel sounds and soft to palpation Inspection: gravid Manual OB Exam: estimated gestational size appropriate, presentation breech, dilated 0.5, effaced 50 and station -3 Back/Spine no CVA tenderness Extremity normal to inspection Skin no rashes or lesions noted Psych mental status grossly normal NST FHR Rate Baby A Baseline: 125 Variability:: Moderate Accelerations:: 15 x 15 Decelerations:: None NST Reactive:: Yes FHR Category:: Category I Uterine Activity:: irregular Assessment & Plan (1) contractions: COMMENT: UA done, decreased with oral hydration, no cervical change PLAN: send urine for culture. encouraged oral hydration with successful decrease in frequency/intensity of contractions. follow up in office at next appt (2) Supervision of high risk , antepartum: COMMENT: PRR , SUJEY 02/26/23 boy Patel (3) : QUALIFIERS: Weeks of gestation: 32 weeks Qualified Code(s): Z3A.32 - 32 weeks gestation of COMMENT: declined genetic & carrier testing. afp neg, nl anatomy Charges/Coding Multi Select Codes Visit Charges Office Visit/Consults: 02196 OV L3 Est Urinary/Genital Urinary/Genital CPT Codes: 68777-95 non-stress test Interp
== END 2023-01-15 23:54 | disposition home or self-care (01) ==
LOC: WPOUT 21:03 → WP 21:04
PROVIDERS: PCP Family Medicine; Visit Provider Advanced Practice Midwife
DX: O47.03 False labor before 37 completed weeks of gestation, third trimester (principal); Z3A.32 32 weeks gestation of pregnancy
CPT/HCPCS: 59025; 59050; 81002; 87086; 87088; 99221; G0378

== ENCOUNTER → 2023-02-01 | Outpatient (CLI) | payer BC, SELFPAY | END | disposition home or self-care (01) | PROVIDERS: PCP Family Medicine; Visit Provider Obstetrics & Gynecology | DX: O09.90 Supervision of high risk pregnancy, unspecified, unspecified trimester (principal); Z3A.00 Weeks of gestation of pregnancy not specified | CPT/HCPCS: 87081 ==

== ENCOUNTER 2023-02-23 22:23 | Outpatient (CLI) | payer BC, SELFPAY ==
[2023-02-23 22:33] VITALS: BP 127/89; PULSE 106
[2023-02-23 22:34] VITALS: BP 127/89; PULSE 106; TEMP 36.8; O2SAT 96; BMI 29.4
[2023-02-24] MEDS: hydrOXYzine PAM 25 MG Capsule 50 MG PO (01:30)
--- NOTE | 2023-02-24 09:35 | OB.TRI.HP_ITS ---
HPI - General HPI Narrative EMY JARVIS, is a 28 y/o @ 39 weeks 5 days who presents to L&D after having intercourse with painful contractions. Her initial exam was unchanged from her office visit last week. She denies lof, vaginal bleeding, or dec fm. Maternal Data Information SUJEY Calculator Estimated Delivery Date Method Current WG Current Estimate 02/26/23 LMP (Certain) 39w 5d PFSH PFSH Medical History Abdominal pulsatile mass Anxiety Asthma Gastric reflux GERD (gastroesophageal reflux disease) Mild anemia Missed Mitral valve prolapse Non-smoker Palpitations Syncope and collapse Home Medications mometasone 220 mcg/actuation(120 doses)breath activated powder inhaler (Asmanex Twisthaler) 2 inh inhalation QPM PRN asthma 08/11/18 [History Last Taken 02/22/23] cholecalciferol (vitamin D3) 50 mcg (2,000 unit) capsule 6,000 unit PO DAILY 08/31/19 [History Last Taken 02/22/23] PNV 178-FA 180 mcg-om3 35 mg-dha 25 mg-epa 5 mg-fish oil chew tablet 1 tab PO DAILY 03/09/22 [History Last Taken 02/22/23] doxylamine succinate 25 mg tablet (Unisom (doxylamine)) 12.5 mg PO QHS PRN sleep aid 07/10/22 [History Last Taken 02/22/23] pyridoxine (vitamin B6) 25 mg tablet 25 mg PO DAILY 07/10/22 [History Last Taken 02/22/23] ferrous sulfate 325 mg (65 mg iron) tablet 325 mg PO DAILY 12/07/22 [History Last Taken 02/22/23] famotidine 40 mg tablet (Pepcid) 40 mg PO DAILY #90 tabs 02/08/23 [Rx Last Taken 02/22/23] Allergy/AdvReac Type Severity Reaction Status Date / Time pineapple Allergy Mild other Verified 02/23/23 23:02 diphenhydramine AdvReac Severe Other Verified 02/23/23 23:02 [From Benadryl] Family History Grandmother CAD (coronary artery disease) Pancreatic cancer Father Mitral valve prolapse Surgical History Hx of appendectomy Hx of dilation and curettage Social History adopted: No household members: spouse housing: house number of children: 0 current occupational status: employed current occupation: [employer] current occupational exposures/hazards: No pets and animals: Yes pets and animals: dog(s) leisure activities: exercise history of recent travel: No sexually active: Yes Smoking Status: Never smoker alcohol intake: never substance use type: does not use diet: gluten free well-balanced diet: daily or most days caffeine: No eating out: rarely or never during the past year weight has: remained stable what type of physical activity do you participate in: bicycling frequency: daily duration: 15-30 minutes/day 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 seatbelt use: always do you feel safe at home: Yes additional social history: [employer]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 Hx Para 0 Spontaneous abortions 1 Hx # Term Pregnancies Ectopic pregnancies Hx # Pregnancies Multiple births # of living children Visit Details Expected Delivery Route/Plan Labor Preferences- CB/BF classes: yes, took just breathe labor support person: patel labor intervention preferences: see attached sheet pain management options preferred: iv pain meds, will consider nitrous, and epidural last resort cut cord/dad catch: FOB Patel : yes PP control planned: undecided discussed possible routes of delivery and associated risks: reviewed, prefers vag special requests: tub room if possible, massage, aromatherapy,wear own clothes, wants to move in [place] Plans Covid status: discussed Flu vaccine: discussed Tdap vaccine: discussed Rhogam:na LARC form signed: declined movement and labor precautions reviewed. Problem list reviewed and updated with the most current plan of care details and appropriate orders placed. Relevant counseling for the gestational age provided. Continue routine care and follow up unless otherwise noted in visit notes/problem list details OB Flowsheet Initial Weight: Not Recorded Date -?-?-?-?-?-?-?-?-?-?-?-?- EGA Weight BP Urine Prot -?-?-?-?-?-?-?-?-?-?-?-?- Glucose FHR FuHt Pres Dilation -?-?-?-?-?-?-?-?-?-?-?-?- Effaced St Visit Note 07/18/22 -?-?-?-?-?-?-?-?-?-?-?-?- 8w 1d 146 lb 4 oz 134/71 -?-?-?-?-?-?-?-?-?-?-?-?- 158 -?-?-?-?-?-?-?-?-?-?-?-?- JV- single live IUP consistent with LMP. pt had 2 other reports had 2 other exams 08/16/22 -?-?-?-?-?-?-?-?-?-?-?-?- 12w 2d 147 lb 124/78 Negative -?-?-?-?-?-?-?-?-?-?-?-?- Negative 157 -?-?-?-?-?--?-?-?-?-?-?-?- JV- no cramping or bleeding. bedside scan to confirm heartones. rx for reglan and pepcid sent to pharmacy 09/14/22 -?-?-?-?-?-?-?-?-?-?-?-?- 16w 3d 148 lb 8 oz 111/76 -?-?-?-?-?-?-?-?-?-?-?-?- 143 -?-?-?-?-?-?-?-?-?-?-?-?- LC-no vb/crampin g. afp discussed and accepted. having dizzy spells at work. will increase protein/sodium. BP stable. 10/12/22 -?-?-?-?-?-?-?-?-?-?-?-?- 20w 3d 150 lb 6 oz 111/76 Nega tive -?-?-?-?-?-?-?-?-?-?-?-?- Negative 145 20 -?-?-?-?-?-?-?-?-?-?-?-?- SM- no vb crmapi ng doing well 11/08/22 -?-?-?-?-?-?-?-?-?-?-?-?- 24w 2d 156 lb 105/72 Negative -?-?-?-?-?-?-?--?-?-?-?-?- Negative 157 24 -?-?-?-?-?-?-?-?-?-?-?-?- JV- notes from [facility] reviewed. no concerns. GCT ordered. pt is having a boy! 12/07/22 -?-?-?-?-?-?-?-?-?-?-?-?- 28w 3d 162 lb 2 oz 109/76 Nega tive -?-?-?-?-?-?-?-?-?-?-?-?- Negative 150 28 Breech -?-?-?-?-?-?-?-?-?-?-?-?- SM- no vb lof go od fm no regular ctx 01/03/23 -?-?-?-?-?-?-?-?-?-?-?-?- 32w 2d 165 lb 2 oz 110/70 Nega tive -?-?-?-?-?-?-?-?-?-?-?-?- Negative 150 33 -?-?-?-?-?-?-?-?-?-?-?-?- SM- no vb lof go od fm no regular ctx 01/17/23 -?-?-?-?-?-?-?-?-?-?-?-?- 34w 2d 165 lb 8 oz 112/77 Nega tive -?-?-?--?-?-?-?-?-?-?-?-?- Negative 144 34 Cephalic -?-?-?-?-?-?-?-?-?-?-?-?- JV- still having intermittent contractions but nothing like Saturday when she was on l&D. off work until 35 weeks 02/01/23 -?-?-?-?-?-?-?-?-?-?-?-?- 36w 3d 170 lb 8 oz 112/79 Nega tive -?-?-?-?-?-?-?-?-?-?-?-?- Negative 154 36 Cephalic 0 -?-?-?-?-?-?-?-?-?-?-?-?- JV- no lof, vagi nal bleeding, or dec fm. gbs collected. plan reviewed. 02/07/23 -?-?-?-?-?-?-?-?-?-?-?-?- 37w 2d 171 lb 6 oz 120/79 Nega tive -?-?-?-?-?-?-?-?-?-?-?-?- Negative 144 37 Cephalic 1 -?-?-?-?-?-?-?-?-?-?-?-?- 30 -3 JV- having lots of BH contractions. still working. labor precautions discussed. no lof, vaginal bleeding, or dec fm. 02/15/23 -?-?-?-?-?-?-?-?-?-?-?-?- 38w 3d 171 lb 8 oz 130/85 Nega tive -?-?-?-?-?-?-?-?-?-?-?-?- Negative 140 38 Cephalic 1 -?-?-?-?-?-?-?-?-?-?-?-?- 50 -1 SM- no vb lof good fm no regular ctx 02/21/23 -?-?-?-?-?-?-?-?-?-?-?-?- 39w 2d 172 lb 4 oz 118/82 Nega tive -?-?-?-?-?-?-?-?-?-?-?-?- Negative 145 39 Cephalic 1 .5 -?-?-?-?-?-?-?-?-?-?-?-?- 70 -1 JV- pt com [place] that she is very tired and not sleeping due to painful contractions. She is requesting an elective induction on or shortly after her due date. ROS Constitutional Constitutional: Reports systems reviewed and no addt'l complaints, except as documented Gastrointestinal Gastrointestinal: Denies bloating, constipation, cramping, diarrhea, nausea or vomiting Genitourinary Genitourinary: Reports other Details: Denies vaginal odor, vaginal bleeding, or vaginal discharge ; Denies difficulty urinating or flank pain Physical Exam HEENT normocephalic Resp normal respiratory effort and normal air movement no CVA tenderness Extremity normal to inspection General Extremity: edema bilateral (trace ) NST FHR Rate Baby A Baseline: 140 Variability:: Moderate Accelerations:: 15 x 15 Decelerations:: None NST Reactive:: Yes FHR Category:: Category I Uterine Activity:: irregular contractions from 1-7 minutes apart Assessment & Plan (1) False labor: PLAN: labor precautions discussed. cervix unchanged after 2 hours patient was given vistaril to be able to rest and discharged to home Charges/Coding Multi Select Codes Visit Charges Office Visit/Consults: 14687 OV L3 Est Urinary/Genital Urinary/Genital CPT Codes: 98561-37 non-stress test Interp
== END 2023-02-24 01:43 | disposition home or self-care (01) ==
LOC: WPOUT 22:27 → WP 22:28
PROVIDERS: Referring Provider Obstetrics & Gynecology; Visit Provider Obstetrics & Gynecology
DX: O47.1 False labor at or after 37 completed weeks of gestation (principal); J45.909 Unspecified asthma, uncomplicated; Z3A.39 39 weeks gestation of pregnancy; O99.511 Diseases of the respiratory system complicating pregnancy, first trimester
CPT/HCPCS: 59025; 59050; 99221; G0378

== ENCOUNTER 2023-03-03 18:55 | Inpatient (IN) | payer BC, SELFPAY ==
[2023-03-03] MEDS: Lactated Ringers 1,000 ML 50 ML IV (19:30)
[2023-03-03 19:47] LABS: Absolute Lymphocyte Count 1.77 X10^3/uL (0.83-4.51); Absolute Neutrophil Count 8.1 X10^3/uL (2.0-7.7); Basophil# 0.02 X10^3/uL; Basophil% 0.2 % (0-1); Eosinophil# 0.04 X10^3/uL; Eosinophils% 0.4 % (0-5); Hematocrit 34.8 % (37-47); Hemoglobin 11.9 g/dL (12.0-15.0); Lymphocyte # 1.77 X10^3/ul (0.83-4.51); Lymphocyte % 16.9 % (19-41); Mean Corp Hgb Conc 34.2 g/dL (32-36); Mean Corpuscular Volume 87.7 fL (81-99); Mean Platelet Vol. 12.8 fl (6.2-12.0); Monocyte# 0.49 X10^3/uL; Monocyte% 4.7 % (0-10); NRBC Flagged by Analyzer 0 % (0-5); Neutrophil # 8.06 X10^3/uL (2.7-7.7); Neutrophil % 76.8 % (47-70); Platelet Count 152 K/mm3 (150-450); RBC Distribution Width CV 13.5 % (11.6-14.6); RBC Distribution Width SD 43.2 fl (35.1-43.9); Red Blood Count 3.97 M/mm3 (4.2-5.4); White Blood Count 10.5 K/mm3 (4.4-11.0)
[2023-03-03 20:00] VITALS: BP 117/70; PULSE 93; PULSE 96; TEMP 36.4; O2SAT 97
[2023-03-03 20:33] LABS: Syphilis Antibodies Non-reactive
[2023-03-03] MEDS: Oxytocin 15 Units/NS 250ml 15 UNITS/250 ML IV.SOLN 2 UNITS IV (20:40)
[2023-03-03] MEDS: 0.9% Normal Saline Single 100 ML IV.SOLN. INTRA-UTER (20:42)
[2023-03-03 20:51] VITALS: BP 111/73; TEMP 36.4
[2023-03-03 20:52] VITALS: PULSE 146; O2SAT 82; O2SAT 94
[2023-03-03 21:45] VITALS: BP 105/67; PULSE 97; TEMP 36.4; O2SAT 97
[2023-03-03 23:06] VITALS: BP 110/72; PULSE 94; TEMP 36.3; O2SAT 97
--- NOTE | 2023-03-03 23:20 | HP.PCM.OB_ITS ---
HPI - General General Date of Admission: 03/03/23 HPI Narrative EMY JARVIS, is a 28 F who presents for IOL secondary to postdates no vb lof admits good fm irregular ctx Maternal Data Information SUJEY Calculator Estimated Delivery Date Method Current WG Current Estimate 02/26/23 LMP (Certain) 40w 5d PFSH PFSH Medical History (Updated 03/03/23 @ 23:[address] Kallie Estrada MD) Abdominal pulsatile mass Anxiety Asthma Gastric reflux GERD (gastroesophageal reflux disease) Mild anemia Missed Mitral valve prolapse Non-smoker Palpitations Syncope and collapse Home Medications mometasone 220 mcg/actuation(120 doses)breath activated powder inhaler (Asmanex Twisthaler) 2 inh inhalation QPM PRN asthma 08/11/18 [History Last Taken 02/22/23] cholecalciferol (vitamin D3) 50 mcg (2,000 unit) capsule 6,000 unit PO DAILY 08/31/19 [History Last Taken 02/22/23] PNV 178-FA 180 mcg-om3 35 mg-dha 25 mg-epa 5 mg-fish oil chew tablet 1 tab PO DAILY 03/09/22 [History Last Taken 02/22/23] doxylamine succinate 25 mg tablet (Unisom (doxylamine)) 12.5 mg PO QHS PRN sleep aid 07/10/22 [History Last Taken 02/22/23] pyridoxine (vitamin B6) 25 mg tablet 25 mg PO DAILY 07/10/22 [History Last Taken 02/22/23] ferrous sulfate 325 mg (65 mg iron) tablet 325 mg PO DAILY 12/07/22 [History Last Taken 02/22/23] famotidine 40 mg tablet (Pepcid) 40 mg PO DAILY #90 tabs 02/08/23 [Rx Last Taken 02/22/23] Allergy/AdvReac Type Severity Reaction Status Date / Time pineapple Allergy Mild other Verified 03/01/23 15:46 diphenhydramine AdvReac Severe Other Verified 03/01/23 15:46 [From Benadryl] Family History Grandmother CAD (coronary artery disease) Pancreatic cancer Father Mitral valve prolapse Surgical History Hx of appendectomy Hx of dilation and curettage Social History adopted: No household members: spouse housing: house number of children: 0 current occupational status: employed current occupation: [employer] current occupational exposures/hazards: No pets and animals: Yes pets and animals: dog(s) leisure activities: exercise history of recent travel: No sexually active: Yes Smoking Status: Never smoker alcohol intake: never substance use type: does not use diet: gluten free well-balanced diet: daily or most days caffeine: No eating out: rarely or never during the past year weight has: remained stable what type of physical activity do you participate in: bicycling frequency: daily duration: 15-30 minutes/day estrella/roman catholic: [employer]ar[employer] seatbelt use: always do you feel safe at home: Yes additional social history: 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 Elective abortions Hx Para 0 Spontaneous abortions 1 Hx # Term Pregnancies Ectopic pregnancies Hx # Pregnancies Multiple births # of living children Visit Details Expected Delivery Route/Plan Labor Preferences- CB/BF classes: yes, took just breathe labor support person: patel labor intervention preferences: see attached sheet pain management options preferred: iv pain meds, will consider nitrous, and epidural last resort cut cord/dad catch: FOB Patel : yes PP control planned: undecided discussed possible routes of delivery and associated risks: reviewed, prefers vag special requests: tub room if possible, massage, aromatherapy,wear own clothes, wants to move in [place] bor Plans Covid status: discussed Flu vaccine: discussed Tdap vaccine: discussed Rhogam:na LARC form signed: declined movement and labor precautions reviewed. Problem list reviewed and updated with the most current plan of care details and appropriate orders placed. Relevant counseling for the gestational age provided. Continue routine care and follow up unless otherwise noted in visit notes/problem list details OB Flowsheet Initial Weight: Not Recorded Date -?-?-?-?-?-?-?-?-?-?-?-?- EGA Weight BP Urine Prot -?--?-?-?-?-?-?-?-?-?-?-?- Glucose FHR FuHt Pres Dilation -?-?-?-?-?-?-?--?-?-?-?-?- Effaced St Visit Note 07/18/22 -?-?-?-?-?-?-?-?-?-?-?-?- 8w 1d 146 lb 4 oz 134/71 -?-?-?-?-?-?-?-?-?-?-?-?- 158 -?-?-?-?-?-?-?-?-?-?-?-?- JV- single live IUP consistent with LMP. pt had 2 other reports had 2 other exams 08/16/22 -?-?-?-?-?-?-?-?-?-?-?-?- 12w 2d 147 lb 124/78 Negative -?-?-?-?-?-?-?-?-?-?-?-?- Negative 157 -?-?-?-?-?-?-?-?-?-?-?-?- JV- no cramping or bleeding. bedside scan to confirm heartones. rx for reglan and pepcid sent to pharmacy 09/14/22 -?-?-?-?-?-?-?-?-?-?-?-?- 16w 3d 148 lb 8 oz 111/76 -?-?-?-?-?-?-?-?-?-?-?-?- 143 -?-?-?-?-?-?-?-?-?-?-?-?- LC-no vb/crampin g. afp discussed and accepted. having dizzy spells at work. will increase protein/sodium. BP stable. 10/12/22 -?-?-?-?-?-?-?-?-?-?-?-?- 20w 3d 150 lb 6 oz 111/76 Nega tive -?-?-?-?-?-?-?-?-?-?-?-?- Negative 145 20 -?-?-?-?-?-?--?-?-?-?-?-?- SM- no vb crmapi ng doing well 11/08/22 -?-?-?-?-?-?-?-?-?-?-?-?- 24w 2d 156 lb 105/72 Negative -?-?-?-?-?-?-?-?-?-?-?-?- Negative 157 24 -?-?-?-?-?-?-?-?-?-?-?-?- JV- notes from c ardiology reviewed. no concerns. GCT ordered. pt is having a boy! 12/07/22 -?-?-?-?-?-?-?-?-?-?-?-?- 28w 3d 162 lb 2 oz 109/76 Nega tive -?-?-?-?-?-?-?-?-?-?-?-?- Negative 150 28 Breech -?-?-?-?-?-?-?-?-?-?-?-?- SM- no vb lof go od fm no regular ctx 01/03/23 -?-?-?-?-?-?-?-?-?-?-?-?- 32w 2d 165 lb 2 oz 110/70 Nega tive -?-?-?-?-?-?-?-?-?-?-?-?- Negative 150 33 -?-?-?-?-?-?-?-?-?-?-?-?- SM- no vb lof go od fm no regular ctx 01/17/23 -?-?-?-?-?-?-?-?-?-?-?-?- 34w 2d 165 lb 8 oz 112/77 Nega tive -?-?-?-?-?-?-?-?-?-?-?-?- Negative 144 34 Cephalic -?-?-?-?-?-?-?-?-?-?-?-?- JV- still having intermittent contractions but nothing like Saturday when she was on l&D. off work until 35 weeks 02/01/23 -?-?-?-?-?-?-?-?-?-?-?-?- 36w 3d 170 lb 8 oz 112/79 Nega tive -?-?-?-?-?-?-?-?-?-?-?-?- Negative 154 36 Cephalic 0 -?-?-?-?-?-?-?-?-?-?-?-?- JV- no lof, vagi nal bleeding, or dec fm. gbs collected. plan reviewed. 02/07/23 -?-?-?-?-?-?-?-?-?-?-?-?- 37w 2d 171 lb 6 oz 120/79 Nega tive -?-?-?-?-?-?-?-?-?-?-?-?- Negative 144 37 Cephalic 1 -?-?-?-?-?-?-?-?-?-?-?-?- 30 -3 JV- having lots of BH contractions. still working. labor precautions discu ssed. no lof, vaginal bleeding, or dec fm. 02/15/23 -?-?-?-?-?-?-?-?-?-?-?-?- 38w 3d 171 lb 8 oz 130/85 Nega tive -?-?-?-?-?-?-?-?-?-?-?-?- Negative 140 38 Cephalic 1 -?-?-?-?-?-?-?-?-?-?-?-?- 50 -1 SM- no vb lof good fm no regular ctx 02/21/23 -?-?-?-?-?-?-?-?-?-?-?-?- 39w 2d 172 lb 4 oz 118/82 Nega tive -?-?-?-?-?-?-?-?-?-?-?-?- Negative 145 39 Cephalic 1 .5 -?-?-?-?-?-?-?-?-?-?-?-?- 70 -1 JV- pt com [place] that she is very tired and not sleeping due to painful contractions. She is requesting an elective induction on or shortly after her due date. 03/01/23 -?-?-?-?-?-?-?-?-?-?-?-?- 40w 3d 201 lb 2 oz 109/69 Nega tive -?-?-?-?-?-?-?-?-?-?-?-?- Negative 140 40 Cephalic 1 .5 -?-?-?-?-?-?-?-?-?-?-?-?- 60 -1 SM- no vb lof good fm no regular ctx membranes swept NST FHR Rate Baby A Baseline: 130 Variability:: Moderate Accelerations:: 15 x 15 Decelerations:: None NST Reactive:: Yes FHR Category:: Category I Uterine Activity:: irregular ROS Constitutional Constitutional: Reports systems reviewed and no addt'l complaints, except as documented Eyes Eyes: Denies change in vision ENT HEENT: Reports systems reviewed and no addt'l complaints, except as documented; Denies headache(s) Cardiovascular Cardiovascular: Reports systems reviewed and no addt'l complaints, except as documented; Denies chest pain or dyspnea Respiratory/Chest Respiratory/Chest: Reports systems reviewed and no addt'l complaints, except as documented Gastrointestinal Gastrointestinal: Reports systems reviewed and no addt'l complaints, except as documented; Denies abdominal pain Genitourinary Genitourinary: Reports systems reviewed and no addt'l complaints, except as documented, contractions Details: present (irregular) and movement Details: present; Denies dysuria or genital lesions Musculoskeletal Musculoskeletal: Reports systems reviewed and no addt'l complaints, except as documented Neurologic Neurologic: Reports systems reviewed and no addt'l complaints, except as documented Endocrine Endocrinology: Reports systems reviewed and no addt'l complaints, except as documented Vital Signs Vital Signs Vital Signs: 03/03/23 20:00 03/03/23 20:00 03/03/23 20:00 Temperature 97.5 F L Pulse Rate 93 Blood Pressure 117/70 BP Systolic 117 BP Diastolic 70 Pulse Ox 03/03/23 20:00 03/03/23 20:00 03/03/23 20:51 Temperature Pulse Rate 96 Blood Pressure 111/73 BP Systolic 111 BP Diastolic 73 Pulse Ox 97 03/03/23 20:52 03/03/23 20:52 03/03/23 20:51 Temperature 97.5 F L Pulse Rate 146 H Blood Pressure BP Systolic BP Diastolic Pulse Ox 82 03/03/23 20:52 03/03/23 21:45 03/03/23 21:45 Temperature Pulse Rate 97 Blood Pressure 105/67 BP Systolic 105 BP Diastolic 67 Pulse Ox 94 03/03/23 21:45 03/03/23 21:45 03/03/23 23:06 Temperature 97.5 F L Pulse Rate Blood Pressure 110/72 BP Systolic 110 BP Diastolic 72 Pulse Ox 97 03/03/23 23:06 03/03/23 23:06 03/03/23 23:06 Temperature 97.3 F L Pulse Rate 94 Blood Pressure BP Systolic BP Diastolic Pulse Ox 97 Weight Weight: 172 lb 2.896 oz Physical Exam Const alert, oriented x3, no apparent distress and healthy appearing HEENT normocephalic and moist oral mucous membranes Head and Scalp: atraumatic Neck full ROM, no lymphadenopathy, supple and thyroid normal General: trachea midline Lymph Lymphatic: no lymphadenopathy noted Chest inspection of chest normal Resp normal respiratory effort Cardio regular rate GI normal to inspection, nondistended, normoactive bowel sounds, soft to palpation and non-tender Inspection: gravid external exam normal Manual OB Exam: estimated gestational size appropriate, presentation cephalic, dilated, effaced and station Extremity normal to inspection General Extremity: Negative for edema Skin no rashes or lesions noted Neuro no focal motor deficits and deep tendon reflexes 2+ bilaterally Motor Exam: strength 5/5 throughout and clonus absent Psych mental status grossly normal Labs Labs Labs: Blood Type A POSITIVE Antibody Screen NEGATIVE Hct 34.8 % (37-47) L Hgb 11.9 g/dL (12.0-15.0) L Obstetrics US Syphilis Total Ab Non-reactive Rubella IgG Antibody Reactive (Nonreactive) Hep Bs Antigen Non-Reactive (Nonreactive) Chlamydia DNA (MAGNO) Negative (Negative) Neisseria gonorrhoeae DNA (MAGNO) Negative (Negative) HIV 1&2 Antibody Non-Reactive (Nonreactive) Glucose 1 Hr 50 gm 108 mg/dL (70-140) Miscellaneous Test Assessment & Plan (1) Mild anemia: COMMENT: add daily Fe (2) Supervision of high risk , antepartum: COMMENT: PRR , SUJEY 02/26/23 boy Stiven Patel (3) : QUALIFIERS: Weeks of gestation: 40 weeks Qualified Code(s): Z3A.40 - 40 weeks gestation of COMMENT: declined genetic & carrier testing. afp neg, nl anatomy (4) Asthma: COMMENT: albuterol PRN (5) Encounter for induction of labor:
[2023-03-03] MEDS: Acetaminophen 500 MG Tablet PO (23:39)
[2023-03-04] VITALS (96 sets, daily range): BP systolic 70–210; BP diastolic 38–160; PULSE 65–154; RESP 14–15; TEMP 35.8–36.6; O2SAT 75–100
[2023-03-04] MEDS: LACTATED RINGERS 500 ML 999 ML IV ×3 (01:40→05:30)
[2023-03-04] MEDS: fentaNYL 100 MCG/2 ML Ampul IV (01:43)
[2023-03-04] MEDS: Ondansetron 4 MG/2 ML Vial IV (01:43)
[2023-03-04] MEDS: fentaNYL-bupivacaine (epidural) 100 ML BAG EPIDURAL ×2 (02:51→07:37)
[2023-03-04] MEDS: proCHLORPERazine 10 MG/2 ML Vial IV (03:05)
[2023-03-04] MEDS: Amnioinfusion- 0.9% NS 1,000 ML IV.SOLN. INTRA-UTER (06:10)
[2023-03-04] MEDS: Lactated Ringers 1,000 ML 200 ML IV ×2 (08:06→13:07)
--- NOTE | 2023-03-04 12:33 | OP.PCM_ITS ---
Assessment & Plan (1) Encounter for induction of labor: (2) Mild anemia: COMMENT: add daily Fe (3) Supervision of high risk , antepartum: COMMENT: PRR , SUJEY 02/26/23 jose Saleem Patel (4) : QUALIFIERS: Weeks of gestation: 40 weeks Qualified Code(s): Z3A.40 - 40 weeks gestation of COMMENT: declined genetic & carrier testing. afp neg, nl anatomy (5) Asthma: COMMENT: albuterol PRN (6) Vaginal delivery: COMMENT: SM jose saleem 40 IOL postdates Maternal Data Information SUJEY Calculator Estimated Delivery Date Method Current WG Current Estimate 02/26/23 LMP (Certain) 40w 6d Vaginal Delivery Operative Information Date of Procedure: 03/04/23 Pre-Operative Diagnosis: see a/p diagnoses Post-Operative Diagnosis: same Surgery / Procedure Performed: Spontaneous Vaginal Delivery Type of Anesthesia: Epidural Special Medications: none Estimated Blood Loss: 200 Fluids Replaced: crystalloid Findings Description of Procedure: Patient began pushing and delivered the head in the [SUSY] presentation. The head was delivered atraumatically [and a loose nuchal cord ?1 was identified and the delivered through without complication]. The anterior and posterior shoulders delivered without complication followed by the rest of the and the infant was placed on the maternal abdomen. Delayed cord clamping was employed for approximately 60 seconds. Cord was clamped and cut and gentle traction was applied to the cord and the placenta delivered spontaneously immediately following it was noted to be intact with three-vessel cord. The perineum and vagina were inspected and [noted to have a [] degree perineal laceration which was repaired in the usual fashion with 3-0 vicryl rapide.] [noted to have no laceration]. EBL was [200 cc]. Patient and tolerated delivery well. Amniotic Fluid Description: Clear Placental Delivery Description: Spontaneous Placenta Disposition: [facility] Cord Vessel Description: 3 Vessels Cord Entanglement: None Delayed Cord Clamping: Yes Post Vaginal Delivery Medications Given After Delivery: IV Pitocin Episiotomy Description: None Complication Complications: None Procedures Urinary/Genital [id number]: [id number] Vaginal Delivery [facility]
--- NOTE | 2023-03-04 12:37 | DCINST_ITS ---
Discharge Instructions Diet Discharge Diet: No restrictions Activity Discharge Activity: Return to Normal Activity, May Not Drive (while taking narcotic pain medications.) and May Shower May resume sexual activity in: 4-6 weeks Dressing / Incision Call your doctor if your incision/area has: Continuous Slow Oozing, Sudden Increased Bleeding, Increased Pain/ Swelling, Increased Redness and Foul Smelling Discharge Follow Up Care Please Follow Up With: Kallie Estrada MD When: Call [phone] to make an appointment with your doctor in 6 weeks. If you had elevated blood pressure or 4th degree laceration, you will need to be seen in 2 weeks. Test Results: Test results from this visit will be discussed in further detail at your follow- up appointment, if applicable. Discharge Plan Admission Admit Date/Time: 03/03/23 18:55 Attending Provider: Kallie Estrada Primary Care Provider: Nina PhysicianIsabel Primary Discharge Orders/Prescriptions Prescriptions: No Action mometasone 220 mcg (120 doses) breath activated powder inhaler 220 mcg (120 doses) aerosol powdr breath activated 2 inh INHALATION QPM PRN (Reason: asthma) cholecalciferol (vitamin D3) 50 mcg (2,000 unit) capsule 6,000 unit PO DAILY PNV [id number] 180 mcg-35 mg- 25 mg-5 mg tablet,chewable 1 tab PO DAILY Unisom (doxylamine) 25 mg tablet 12.5 mg PO QHS PRN (Reason: sleep aid) pyridoxine (vitamin B6) 25 mg tablet 25 mg PO DAILY ferrous sulfate 325 mg (65 mg iron) tablet 325 mg PO DAILY famotidine [Pepcid] 40 mg tablet 40 mg PO DAILY Qty: 90 4RF Referrals / Follow Up: Care Physician,No Primary [Primary Care Provider] - Disposition Disposition (needs filled in before D/C Order can be placed): Home, Self Care
[2023-03-04] MEDS: Oxytocin 15 Units/NS 250ml 15 UNITS/250 ML IV.SOLN 83 UNITS IV (14:09)
[2023-03-04] MEDS: Benzocaine/Lanolin/Aloe Vera 1 SPRAY EACH TOPICAL (15:37)
[2023-03-04] MEDS: Naproxen 500 MG Tablet PO (16:27)
[2023-03-04] MEDS: 0.9% Saline Lock 10 ML Syringe IV (17:07)
[2023-03-04] MEDS: Acetaminophen 500 MG Tablet 1000 MG PO (19:37)
[2023-03-05] MEDS: Naproxen 500 MG Tablet PO ×2 (01:44→09:33)
[2023-03-05 04:32] VITALS: BP 97/61; PULSE 85; RESP 14; TEMP 36.8; O2SAT 94
--- NOTE | 2023-03-05 07:59 | PCM.PN.OB ---
Subjective Subjective Patient doing well without complaints. Tolerating PO. Ambulating and voiding without difficulty. Feeding well. Denies chest pain, shortness of breath, calf pain/swelling, fevers, chills, lightheadedness. Objective Data Objective Data Vital Signs: Vital Signs Temp Pulse Resp BP Pulse Ox O2 Del Method 98.2 F 85 14 97/61 94 Room Air 03/05/23 04:32 03/05/23 04:32 03/05/23 04:32 03/05/23 04:32 03/05/23 04:32 03/05/23 04:32 Oxygen Delivery Method Room Air Weight: 172 lb 2.896 oz Intake & Output: Intake and Output for Last 24 Hours 03/03/23 03/04/23 03/05/23 23:59 23:59 23:59 Intake Total 8.46 / 8.46 4107.77 / 4107.77 Output Total 2750 / 2750 Balance 8.46 / 8.46 1357.77 / 1357.77 Lab / Micro Data 03/03/23 19:30 Physical Exam Const alert and oriented x3 HEENT normocephalic Eyes PERRL Neck full ROM Resp normal respiratory effort GI soft to palpation GI Narrative: FF below U Assessment & Plan (1) Vaginal delivery: COMMENT: SM boy nacho 40 IOL postdates PLAN: Plan s/p PPD # 1 1. routine post delivery care 2. breast feeding- support given 3. rh positive 4. rubella immune 5. home today
[2023-03-05 08:19] VITALS: BP 98/59; PULSE 95; RESP 16; TEMP 36.3; O2SAT 96
[2023-03-05] MEDS: Senna/Docusate Sodium 1 Tablet PO (09:33)
--- NOTE | 2023-03-05 12:48 | CASEMGMT ---
Social Work Assessment Labor and Delivery Unit Patient Address:[facility] [place] [address] Phone number: [phone] Date of Referral: 03/04/23 Time of Referral:? 1640 Referred By: Kallie Estrada Date of Intervention: ??03/05/23 Time of Intervention:? 1100 Reason for Referral:? Mental Health Sw completed chart review and acknowledges social work consult. Sw presented to bedside, introduced self to parents. MOB states that her parents are visiting at this time. Sw offered to return after visitors had left. MOB said it was ok to talk with visitors present. Sw conducted psychosocial assessment and asked FOB and visitors to leave the room to complete [place] Depression scale and to assess for safety. History obtained from: medical records and mother of baby (JEAN MARIE- Ximena) and father of baby (NAMRATA- Patel) ??? Household composition: Currently residing in the home is NAMRATA AJ, baby boy, Stiven and their family Dante vera Patient's parent/guardian status:?Parents state that they met at religious. They have been together for four years this year. JEAN MAREI denies partner domestic violence/ abuse. MOB states that NAMRATA was extremely supportive during the delivery. Medical History: This is JEAN MARIE's second , first delivery. MOB reporst that she had a loss at 12 weeks only 7 weeks prior to finding out that she was with Stiven. JEAN MARIE required an induction and delivered baby via vaginal delivery at 40 weeks 6 days. Baby was born weighing 3815 grams and his apgars were 8 and 9. JEAN MARIE reports that she is and it is going well. Educational Status:?MOB obtained her nursing degree, NAMRATA graduated from high school. No learning concerns noted. 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 MOB states that she is able to take off as much time as she would like now that baby is born. MOB states that when she goes back to work she will only be working 1.5 days a week. 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 Infant Supplies:??MOB states that they have obtained all necessary baby items for baby including a car seat, safe sleep space, clothes, diapers, wipes and a pump. Childcare/Caregiver(s):? JEAN MARIE will be the primary caregiver to baby. When JEAN MARIE is at work she states that her mom and her mother in law will take turns watching baby. Transportation:?? No transportation barriers at this time, both parents have reliable means of transportation. Programs/Agencies Involved: ?No agency involvement at this time. ?? Children Services/Legal Issues:??? No children services history, no issues or concerns warranting a referral at this time. Behavioral Health Issues: ??Mental Health History:??FOB denies mental health history. MOB states that she has been diagnosed with anxiety. JEAN MARIE was formerly prescribed medication to assist with her symptoms of anxiety, however she stopped taking it when she got for the first time. MOB states that she has done well managing her anxiety throughout her . MOB states that when she experienced her miscarriage it really brought her and FOB closer and she has learned how to express herself and talk about what she is feeling. Jered completed [place] Depression Scale with MOB. MOB score was a 2. Sw educated MOB on seeking additional support from a mental health professional should she start to experience signs or symptoms of baby blues or depression. MOB expressed understanding and agreement. MOB denies ever having SI. ? Substance Use History:?? MOB denies substance use prior to or during . Family History:??MOB reports that there is no family history of substance use. ??? Drug Screens: Drug screen completed in June of 2022 was negative for all substances. Family/Social Stressors:? MOB denied stressors at this time. Support Systems: MOB states that she and FOB have a lot of family that live within a 10 minute radius of them. MOB reports that their family has been extremely kind and considerate during this time in their lives. MOB states that this is the first grandbaby on her side of the family, and the 10th on FOB side of the family. Depression/Shaken Baby/Safe Sleeping: Sw provided education and literature on signs and symptoms of baby blues, depression and anxiety during . Sw educated parents to never shake a baby and the ABCs of safe sleep. Parents expressed understanding. ASSESSMENT:? Parents talkative and interactive during assessment. Parents receptive to sw involvement and support. Parent have a lot of natural supports in place to help them transition home now that baby has been born. MOB aware of signs and symptoms of baby blues and PLAN:? MOB and baby to be discharged once medically ready. ?No other services requested or indicated. Jackie Rivas, WOOL HAT FLANGER, MUSIC TYPOGRAPHER
[2023-03-05 13:20] VITALS: BP 106/66; PULSE 91; RESP 16; TEMP 36.5; O2SAT 99
[2023-03-05] MEDS: Acetaminophen 500 MG Tablet 1000 MG PO (16:46)
== END 2023-03-05 17:05 | disposition home or self-care (01) | DRG 807 ==
PROVIDERS: Admitting Provider Obstetrics & Gynecology; Referring Provider Obstetrics & Gynecology; Visit Provider Obstetrics & Gynecology
DX: O48.0 Post-term pregnancy (principal); Z37.0 Single live birth; D64.9 Anemia, unspecified; J45.909 Unspecified asthma, uncomplicated; O99.02 Anemia complicating childbirth; O99.52 Diseases of the respiratory system complicating childbirth; O70.1 Second degree perineal laceration during delivery; Z3A.40 40 weeks gestation of pregnancy; O69.81X0 Labor and delivery complicated by cord around neck, without compression, not applicable or unspecified; Z79.51 Long term (current) use of inhaled steroids; Z79.899 Other long term (current) drug therapy
CPT/HCPCS: 59025; 59050; 85025; 86780; 86850; 86900; 86901; 99221; J7030; J7120; A4216; G0378; J2405

== ENCOUNTER → 2024-03-18 | Outpatient (CLI) | payer BC, SELFPAY ==
--- NOTE | 2024-03-18 09:24 | US_ITS ---
STUDY: ULTRASOUND BREAST - LEFT REASON FOR EXAM: Female, 29 years old. Palpable lump left breast. TECHNIQUE: Axial and longitudinal images of the LEFT breast were performed with a high resolution ultrasound transducer. # OF IMAGES: 25 COMPARISON: Comparison is made with prior mammogram done earlier today. FINDINGS: LEFT Breast: The palpable lump corresponds to a 1.8 cm x 1 cm x 1.6 cm cyst at the 6:00 position breast at 3 cm from the nipple. Low level echoes are seen within it. This may represent an hemorrhagic cyst. A follow-up sonogram in 3 months is recommended. US/Breast Limited Unilateral IMPRESSION: The palpable lump corresponds to 1.8 cm x 1 cm x 1.6 cm cyst with low-level echoes within it. Sonographic follow-up in 3 months is recommended. ASSESSMENT CATEGORY: BIRADS Category 3: Probably Benign - Short-Interval Follow-up Suggested. A letter regarding these results will be sent to the patient by the facility within 30 days. Electronically Signed: Brandon Acosta MD at 13:36 EDT ,
--- NOTE | 2024-03-18 09:24 | BI_ITS ---
MAMMOGRAPHY - BILATERAL DIAGNOSTIC REASON FOR EXAM: Female, 29 years old. Palpable lump in the inferior central portion of the left breast. History of prior bilateral mastoiditis. PERTINENT HISTORY: Non-contributory. TECHNIQUE: Digital bilateral breast melody (3D mammographic acquisition) in the CC and MLO projections. 2-D mediolateral oblique (MLO) and craniocaudad (CC) views of both breasts were obtained. CAD: Full Field Digital Mammography with Computer Added Detection was performed. COMPARISON: None. Baseline examination. FINDINGS: Breast Composition: The breasts are extremely dense, which lowers the sensitivity of mammography. The palpable lump corresponds to a 1.6 x 1.9 cm well-defined nodule in the inferior deep central portion of the left breast. Targeted sonographic correlation recommended. No other significant abnormalities are identified. BI/DIAG MAMM W/CAD, BILAT IMPRESSION: The palpable lump corresponds to a 1.6 cm x 1.9 cm well-defined nodule in the inferior deep central portion of the left breast. Targeted ultrasound correlation recommended. ASSESSMENT CATEGORY: BIRADS Category 0: Incomplete. Need additional imaging evaluation. A letter regarding these results will be sent to the patient by the facility within 30 days. Approximately 10% of breast cancers are not detected by mammography. A normal mammogram should not delay biopsy of a clinically suspicious abnormality. Electronically Signed: Brandon Acosta MD at 10:20 EDT ,
== END | disposition home or self-care (01) ==
PROVIDERS: PCP Family Medicine; Referring Provider Obstetrics & Gynecology; Visit Provider Obstetrics & Gynecology
DX: N60.02 Solitary cyst of left breast (principal)
CPT/HCPCS: 76642; 77062; 77066; G0279

== ENCOUNTER 2024-04-20 13:37 | Outpatient (CLI) | payer BC, SELFPAY ==
[2024-04-20 14:27] LABS: Absolute Lymphocyte Count 2.26 X10^3/uL (0.83-4.51); Absolute Neutrophil Count 5.1 X10^3/uL (2.0-7.7); Basophil# 0.04 X10^3/uL; Basophil% 0.5 % (0-1); Eosinophil# 0.09 X10^3/uL; Eosinophils% 1.2 % (0-5); Hematocrit 41.2 % (37-47); Hemoglobin 13.4 g/dL (12.0-15.0); Lymphocyte # 2.26 X10^3/ul (0.83-4.51); Lymphocyte % 29.2 % (19-41); Mean Corp Hgb Conc 32.5 g/dL (32-36); Mean Corpuscular Hgb 27.7 pg (27.0-32.0); Mean Corpuscular Volume 85.3 fL (81-99); Mean Platelet Vol. 11.6 fl (6.2-12.0); Monocyte# 0.26 X10^3/uL; Monocyte% 3.4 % (0-10); NRBC Flagged by Analyzer 0 % (0-5); Neutrophil # 5.08 X10^3/uL (2.7-7.7); Neutrophil % 65.4 % (47-70); Platelet Count 227 K/mm3 (150-450); RBC Distribution Width CV 12.4 % (11.6-14.6); RBC Distribution Width SD 38.3 fl (35.1-43.9); Red Blood Count 4.83 M/mm3 (4.2-5.4); White Blood Count 7.8 K/mm3 (4.4-11.0)
[2024-04-24 11:23] LABS: HPV Reflexed? NOT INDICATED
== END 2024-04-20 23:59 | disposition home or self-care (01) ==
PROVIDERS: PCP Family Medicine; Referring Provider Obstetrics & Gynecology; Visit Provider Obstetrics & Gynecology
DX: Z12.4 Encounter for screening for malignant neoplasm of cervix (principal); N92.0 Excessive and frequent menstruation with regular cycle; Z13.29 Encounter for screening for other suspected endocrine disorder
CPT/HCPCS: 36415; 84443; 85025; 88175; G0145

== ENCOUNTER → 2024-06-08 | Outpatient (CLI) | payer BC, SELFPAY ==
--- NOTE | 2024-06-08 11:05 | US_ITS ---
STUDY: ULTRASOUND BREAST - LEFT REASON FOR EXAM: Female, 29 years old. Palpable mass TECHNIQUE: Axial and longitudinal images of the LEFT breast were performed with a high resolution ultrasound transducer. # OF IMAGES: 6 COMPARISON: 03/18/2024 FINDINGS: LEFT Breast: Heterogeneous background echotexture. Multiple longitudinal and transverse ultrasound images the inferior left breast do not demonstrate a discrete solid or cystic mass with interval resolution of the previous study noted cyst.: US/Breast Limited Unilateral IMPRESSION: Normal left breast ultrasound with interval resolution of previously noted cyst. ASSESSMENT CATEGORY: BIRADS Category 1: Negative. A letter regarding these results will be sent to the patient by the facility within 30 days. Electronically Signed: Mike Guerra MD at 14:35 EDT ,
== END | disposition home or self-care (01) ==
PROVIDERS: PCP Family Medicine; Referring Provider Obstetrics & Gynecology; Visit Provider Obstetrics & Gynecology
DX: N63.20 Unspecified lump in the left breast, unspecified quadrant (principal)
CPT/HCPCS: 76642

== ENCOUNTER → 2024-06-23 | Outpatient (CLI) | payer BC, SELFPAY ==
[2024-06-23 12:27] LABS: Absolute Lymphocyte Count 2.71 X10^3/uL (0.83-4.51); Absolute Neutrophil Count 4.8 X10^3/uL (2.0-7.7); Basophil# 0.02 X10^3/uL; Basophil% 0.3 % (0-1); Eosinophil# 0.06 X10^3/uL; Eosinophils% 0.8 % (0-5); Hemoglobin 12.9 g/dL (12.0-15.0); Lymphocyte # 2.71 X10^3/ul (0.83-4.51); Lymphocyte % 34.1 % (19-41); Mean Corp Hgb Conc 32.3 g/dL (32-36); Mean Corpuscular Hgb 27.6 pg (27.0-32.0); Mean Corpuscular Volume 85.7 fL (81-99); Mean Platelet Vol. 11.3 fl (6.2-12.0); Monocyte# 0.32 X10^3/uL; NRBC Flagged by Analyzer 0 % (0-5); Neutrophil # 4.81 X10^3/uL (2.7-7.7); Neutrophil % 60.4 % (47-70); Platelet Count 257 K/mm3 (150-450); RBC Distribution Width CV 12.4 % (11.6-14.6); RBC Distribution Width SD 38.6 fl (35.1-43.9); Red Blood Count 4.67 M/mm3 (4.2-5.4)
--- OUTSIDE RECORDS SUMMARY | 2024-06-23 17:35 | XMS RPT_ITS | CCD ---
Author Organization [facility] Care Team Providers Care Technical Project Lead Name Role Phone [facility] Nurse Unavailable Unavailable [facility] Nurse Unavailable Unavailable Yg Banks Unavailable Unavailable Jose RN, Audra Pereira Unavailable [phone] Yg Banks Unavailable Unavailable Yg Banks Unavailable Unavailable NO PRIMARY CAREMD Primary Care Unavailable TEETEE MCDANIEL Referring Unavailable SHIMON VAUGHAN Attending Unavailable Allergies Allergy Classification Reported Allergen(s) Allergy Type Date of Onset Reaction(s) Facility (11 sources) diphenhydrAMINE drug allergy 7 Hallucinate, tachycardia, Fatigue [facility] Work Phone: Medications Completed/Discontinued Medications Medication Drug Class(es) Dates Sig (Normalized) Sig (Original) 200 actuat albuterol 0.09 mg/actuat metered dose inhaler (6 sources) beta2-Adrenergic Agonist Start: 05-30-2017 PROAIR HFA 108 (90 Base) MCG/ACT AERS as directed ALBUTEROL SULFATE [id number] Audra Garcia RN Start: 05-30-2017 PROAIR HFA 108 (90 Base) MCG/ACT AERS as directed ALBUTEROL SULFATE [id number] Audra Garcia RN cetirizine hydrochloride 10 mg oral tablet (6 sources) Histamine-1 Receptor Antagonist Start: 05-30-2017 take 1 tablet by mouth once daily ZYRTEC ALLERGY 10 MG TABS One tablet by mouth daily CETIRIZINE HCL [id number] Audra Garcia RN ergocalciferol 2000 unt oral tablet (6 sources) Provitamin D2 Compound Start: 05-30-2017 take 1 tablet by mouth once daily VITAMIN D2 2000 UNIT TABS One tablet by mouth daily ERGOCALCIFEROL [id number] Audra Garcia RN fluticasone propionate 0.05 mg/actuat metered dose nasal spray (6 sources) Corticosteroid Start: 05-30-2017 FLUTICASONE PROPIONATE 50 MCG/ACT SUSP (0.05mg/inh) 1 spray each nostril once a day FLUTICASONE PROPIONATE [id number] Audra Garcia RN 120 actuat mometasone furoate 0.22 mg/actuat dry powder inhaler (6 sources) Corticosteroid Start: 05-30-2017 ASMANEX 120 METERED DOSES 220 MCG/INH AEPB Take as directed MOMETASONE FUROATE [id number] Audra Garcia RN Start: 05-30-2017 ASMANEX 120 ME TERED DOSES 220 MCG/INH AEPB Take as directed MOMETASONE FUROATE [id number] Audra Garcia RN MULTIPLE VITAMINS-MINERALS (2 sources) Start: 06-06-2017 take 1 tablet by mouth once daily MULTIVITAMIN ADULT TABS One tablet by mouth daily MULTIPLE VITAMINS-MINERALS [id number] Richard Mcmanus MD MULTIPLE VITAMINS-MINERALS (3 sources) Start: 06-06-2017 take 1 tablet by mouth once daily MULTIVITAMIN ADULT TABS One tablet by mouth daily MULTIPLE VITAMINS-MINERALS [id number] Richard Mcmanus MD raNITIdine 150 mg oral tablet (6 sources) Histamine-2 Receptor Antagonist Start: 05-30-2017 take 1 tablet by mouth once daily at bedtime ZANTAC 150 MG TABS One tablet by mouth daily @ Bedtime RANITIDINE HCL [id number] Audra Garcia RN Problems Active Problems Problem Classification Problem Date Documented Date Episodic/Chronic Asthma (6 sources) Asthma; Translations: [Unspecified asthma, uncomplicated] Onset: 05-30-2017 05-30-2017 Chronic Esophageal disorders (6 sources) Gastroesophageal reflux disease; Translations: [Gastro-esophageal reflux disease without esophagitis] Onset: 05-30-2017 05-30-2017 Chronic Past or Other Problems Problem Classification Problem Date Documented Da te Episodic/Chronic Cardiac dysrhythmias (6 sources) Palpitations; Translations: [Palpitations] Onset: 05-30-2017 05-30-2017 Episodic Unclassified (5 sources) Body mass index (BMI) 20.0-20.9, adult; Translations: [Body mass index (BMI) 20.0-20.9, adult] Onset: 06-06-2017 06-06-2017 Episodic Results Test Name Value Interpretation Reference Range Facility Lab Report: Basic Metabolic Profile (BMP)on 10-24-2017 Anion gap 6 mmol/L Invalid Interpretation Code 5-15 [facility] Work Phone: [phone] BUN/Creatinine Ratio 20.8 RATIO High 10-[address] [facility] [address] [facility] Work Phone: [phone] Calcium 8.8 mg/dL Invalid Interpretation Code 8.5-10.1 [facility] Work Phone: [phone] Chloride 109 mmol/L High 98-107 [facility] Work Phone: [phone] CO2 28.0 mmol/L Invalid Interpretation Code 21.0-32.0 [facility] Work Phone: [phone] Creatinine 0.58 mg/dL Invalid Interpretation Code 0.55-1.02 [facility] Work Phone: [phone] eGFR (non-black) 139 mL/min/{1.73_m2} Invalid Interpretation Code >60 [facility] Work Phone: [phone] eGFR (non-black) 168 mL/min/{1.73_m2} Invalid Interpretation Code >60 [facility] Work Phone: [phone] Glucose 87 mg/dL Invalid Interpretation Code 74-106 [facility] Work Phone: [phone] Potassium 4.0 mmol/L Invalid Interpretation Code 3.5-5.1 [facility] Work Phone: [phone] Sodium 143 mmol/L Invalid Interpretation Code 136-145 [facility] Work Phone: [phone] Urea nitrogen 12 mg/dL Invalid Interpretation Code 7-18 [facility] Work Phone: [phone] Lab Report: CBC-Complete Blo od Cnt No Diffon 10-24-2017 Erythrocytes (RBC) 4.39 10*6/uL Invalid Interpretation Code 4.2-5.4 [facility] Work Phone: [phone] Hematocrit (HCT) 38.3 % Invalid Interpretation Code 37-47 [facility] Work Phone: [phone] Hemoglobin (HGB) 12.6 g/dL Invalid Interpretation Code 12.0-15.0 [facility] Work Phone: [phone] MCH 28.7 pg Invalid Interpretation Code 27.0-32.0 [facility] Work Phone: [phone] MCHC 32.9 G/GL Invalid Interpretation Code 32-36 [facility] Work Phone: [phone] MCV 87.2 fL Invalid Interpretation Code 81-99 [facility] Work Phone: [phone] Platelets 163 10*3/mm3 Invalid Interpretation Code 150-450 [facility] Phone: [phone] PMV by Mark 11.2 fL Invalid Interpretation Code 6.2-12.0 [facility] Phone: [phone] RDW-CA 12.4 % Invalid Interpretation Code 11.6-14.6 [facility] Phone: [phone] red blood cell distribution width, size density 40.1 fL Invalid Interpretation Code 35.1-43.9 [facility] Phone: [phone] WBC (Leukocytes) 4.7 10*3/uL Invalid Interpretation Code 4.4-11.0 [facility] Work Phone: [phone] Lab Report: ,Serum, hCG Quali.on 10-24-2017 B-HCG m[IU]/mL Invalid Interpretation Code =>Qualitative [facility] Work Phone: [phone] Replaced Document: (P) Pregn gunnar,Serum,hCG Quali.on 10-24-2017 beta HCG, serum, qualitative Negative Invalid Interpretation Code 0-9 Nonpreg [facility] Work Phone: [phone] Office Visiton 06-06-2017 Documentation of current medications (procedure) Done Invalid Interpretation Code [facility] Phone: [phone] Fall risk assessment No Invalid Interpretation Code [facility] Phone: [phone] Protein mass conc Done Invalid Interpretation Code [facility] Phone: [phone] Tobacco smoking status NHIS Tobacco smoking status NHIS Invalid Interpretation Code [facility] Work Phone: [phone] Tobacco smoking status NHIS Never smoker Invalid Interpretation Code [facility] Work Phone: [phone] Replaced Document: Shari Johnson 06-06-2017 EKG QRS axis 71 deg Invalid Interpretation Code [facility] Work Phone: [phone] electrocardiogram interpretation Undetermined Rhythm -Short NH syndrome Poli = 106Low voltage in limb leads. - Nonspecific T-abnormality. ABNORMAL Invalid Interpretation Code [facility] Work Phone: [phone] GE use only - for [employer] import when terms are not otherwise specified 387 ms Invalid Interpretation Code [facility] Work Phone: [phone] Interpretation Undetermined Rhythm -Short NH syndrome Poli = 106Low voltage in limb leads. - Nonspecific T-abnormality. ABNORMAL Invalid Interpretation Code [facility] Phone: [phone] P [place] -1 deg Invalid Interpretation Code [facility] Work Phone: [phone] P wave axis, electrocardiogram -1 deg Invalid Interpretation Code [facility] Work Phone: [phone] NH Interval 106 ms Invalid Interpretation Code [facility] Work Phone: [phone] NH interval, electrocardiogram 106 ms Invalid Interpretation Code [facility] Work Phone: [phone] Pulse (Heart Rate) 80 /min Invalid Interpretation Code [facility] Work Phone: [phone] QRS axis, electrocardiogram 71 deg Invalid Interpretation Code [facility] Work Phone: [phone] QRS Duration 84 ms Invalid Interpretation Code [facility] Work Phone: [phone] QRS duration, electrocardiogram 84 ms Invalid Interpretation Code [facility] Work Phone: [phone] QT Interval new path ms Invalid Interpretation Code [facility] Phone: [phone] QT interval, electrocardiogram new path ms Invalid Interpretation Code [facility] Work Phone: [phone] QTc [place] 387 ms Invalid Interpretation Code [facility] Work Phone: [phone] T [place] 1 deg Invalid Interpretation Code [facility] Work Phone: [phone] T wave axis, electrocardiogram 1 deg Invalid Interpretation Code [facility] Work Phone: [phone] Clinical Lists 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: 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 Tobacco smoking status NHIS Never smoker Invalid Interpretation Code [facility] Work Phone: [phone] Tobacco use CPHS Never smoker Invalid Interpretation Code [facility] Work Phone: [phone] Vital Signs Date Time Vital Sign Value Performing Clinician Jaymie phelps 06-06-2017 16:06-0400 Heart rate 80 /min [facility] Work Phone: 06-06-2017 15:43-0400 BMI (Body Mass Index) 20.17 kg/m2 [facility] Work Phone: 06-06-2017 15:43-0400 BP Diastolic 62 mm[Hg] Yg Banks [facility] Work Phone: 06-06-2017 15:43-0400 BP Systolic 94 mm[Hg] [facility] Work Phone: 06-06-2017 15:43-0400 Height 167.64 cm [facility] Work Phone: 06-06-2017 15:43-0400 Pulse (Heart Rate) 76 /min [facility] Work Phone: 06-06-2017 15:43-0400 Respiratory Rate 16 /min [facility] Work Phone: 06-06-2017 15:43-0400 Weight 56.7 kg [facility] Work Phone: Encounters Encounter Date Encounter Type Care Provider Facility Start: 10-08-2022 End: 10-08-2022 ambulatory NO PRIMARY CARE [facility] pital Procedures Date Procedure Procedure Detail Performing Clinician Start: 06-06-2017 End: 06-06-2017 Ecg routine ecg w/least 12 lds w/i&r Richard Mcmanus MD Start: 06-06-2017 End: 06-06-2017 Follow Up Appt 2 months Richard Mcmanus MD Start: 06-06-2017 End: 06-06-2017 MMM Richard Mcmanus MD Start: 06-06-2017 End: 06-06-2017 Electrocardiogram, complete Richard Mcmanus MD Start: 06-06-2017 End: 06-06-2017 Follow Up Appt 2 months Richard Mcmanus MD Start: 06-06-2017 End: 06-06-2017 MMM Richard Mcmanus MD Start: 06-06-2017 End: 07-10-2017 Remote 30 day ecg rev/report Richard Mcmanus MD Plan of Treatment Date Care Activity Detail Author Start: 08-12-2017 End: 08-12-2017 Appointment Appointment [facility] Work Phone: Start: 06-06-2017 End: 06-06-2017 Appointment Appointment [facility] Work Phone: Start: 06-06-2017 End: 06-07-2017 Cardiovascular stress test using treadmill Treadmill stress test (no imaging) [facility] Work Phone: Start: 06-06-2017 End: 06-06-2017 Follow Up Appt 2 months Follow Up Appt 2 months [facility] Work Phone: Start: 06-06-2017 End: 06-06-2017 MMM MM [facility] Work Phone: Start: 06-06-2017 End: 06-07-2017 r mobile cv telemetry w/i&report 30 days 30 Day Holter Monitor [facility] Work Phone: Start: 06-06-2017 End: 06-07-2017 Cardiovascular stress test using treadmill Treadmill stress test (no imaging) [facility] Work Phone: Start: 06-06-2017 End: 06-06-2017 Follow Up Appt 2 months Follow Up Appt 2 months [facility] Work Phone: Start: 06-06-2017 End: 06-06-2017 MMM MMM [facility] Work Phone: Start: 06-06-2017 End: 06-07-2017 Remote 30 day ecg rev/report 30 Day Holter Monitor [facility] Work Phone: Payers Date Payer Category Payer Unknown [id number] Unknown [id number] Summary Purpose Family History No Family History Records Found Advance Directives No Advanced Directives Records Found Additional Source Comments INFORMATION SOURCE (unrecogn ized section and content) DATE CREATED AUTHOR 10/08/2022 [facility] FOR RECORDS PERTAINING TO PATIENTS WHO ARE OR HAVE BEEN ENROLLED IN A CHEMICAL DEPENDENCY/SUBSTANCEABUSE PROGRAM, SOME INFORMATION MAY BE OMITTED. This clinical summary was aggregated from multiple sources. Caution should be exercised in using it in the provision of clinical care. This summary normalizes information from multiple sources, and as a consequence, information in this document may materially change the coding, format and clinical context of patient data. In addition, data may be omitted in some cases. CLINICAL DECISIONS SHOULD BE BASED ON THE PRIMARY CLINICAL RECORDS. [employer] [facility]. provides no warranty or guarantee of the accuracy or completeness of information in this document.
== END | disposition home or self-care (01) ==
LOC: WOBLAB 12:03
PROVIDERS: PCP Family Medicine; Referring Provider Obstetrics & Gynecology; Visit Provider Obstetrics & Gynecology
DX: R23.3 Spontaneous ecchymoses (principal)
CPT/HCPCS: 36415; 85025

== ENCOUNTER → 2025-05-18 | Outpatient (CLI) | payer BC, SELFPAY ==
[2025-05-18 13:26] LABS: hCG Titer Quant., Serum < 1 mIU/mL (<9 non-preg)
== END | disposition home or self-care (01) ==
LOC: BWCLAB 08:07
PROVIDERS: PCP Family Medicine; Visit Provider Advanced Practice Midwife
DX: N91.2 Amenorrhea, unspecified (principal)
CPT/HCPCS: 36415; 84702

== ENCOUNTER 2025-07-02 11:23 | Outpatient (CLI) | payer BC, SELFPAY ==
[2025-07-02 11:31] VITALS: BP 115/64; PULSE 84; RESP 16; TEMP 36.2; O2SAT 100; BMI 23.3
[2025-07-02] MEDS: 0.9% NaCl Peripheral Flush Adult IV (11:44)
[2025-07-02 13:02] VITALS: BP 106/66; PULSE 89; RESP 16; TEMP 36.4; O2SAT 100
== END 2025-07-02 23:59 | disposition home or self-care (01) ==
LOC: MEDOUTP 11:23
PROVIDERS: PCP Family Medicine; Referring Provider Obstetrics & Gynecology; Visit Provider Obstetrics & Gynecology
DX: E86.0 Dehydration (principal)
CPT/HCPCS: 96361; 96374; A4216; J2405

== ENCOUNTER → 2025-07-09 | Outpatient (CLI) | payer BC, SELFPAY ==
[2025-07-09 12:42] LABS: Hematocrit 37.9 % (37-47); Hemoglobin 12.9 g/dL (12.0-15.0); Immature Granulocytes Count 0.040 X10^3/uL (0.0-0.0); Mean Corp Hgb Conc 34.0 g/dL (32-36); Mean Corpuscular Volume 83.8 fL (81-99); Mean Platelet Vol. 11.6 fl (6.2-12.0); NRBC Flagged by Analyzer 0 % (0-5); Platelet Count 271 K/mm3 (150-450); RBC Distribution Width CV 12.5 % (11.6-14.6); RBC Distribution Width SD 38.0 fl (35.1-43.9); Red Blood Count 4.52 M/mm3 (4.2-5.4); White Blood Count 11.0 K/mm3 (4.4-11.0)
[2025-07-09 13:18] LABS: HIV Nonreactive (Nonreactive); Hepatitis B Surface Antigen Nonreactive (Nonreactive); Hepatitis C Antibody Nonreactive (Nonreactive); Syphilis Antibodies Nonreactive (Nonreactive)
[2025-07-12 05:06] LABS: Chlamydia By Nucleic Acid AMP Negative (Negative); Gonococcus By Nucleic Acid AMP Negative (Negative)
== END | disposition home or self-care (01) ==
PROVIDERS: PCP Family Medicine; Visit Provider Obstetrics & Gynecology
DX: Z34.90 Encounter for supervision of normal pregnancy, unspecified, unspecified trimester (principal)
CPT/HCPCS: 36415; 85025; 86703; 86762; 86780; 86803; 86850; 86900; 86901; 87086; 87340; 87491; 87591

== ENCOUNTER 2025-07-20 12:23 | Outpatient (CLI) | payer BC, SELFPAY ==
[2025-07-20 12:39] VITALS: BP 108/73; PULSE 82; RESP 16; TEMP 36.3; O2SAT 98; BMI 23.8
[2025-07-20] MEDS: 0.9% NaCl Peripheral Flush Adult IV ×2 (13:00→14:23)
== END 2025-07-20 23:59 | disposition home or self-care (01) ==
LOC: MEDOUTP 12:23
PROVIDERS: PCP Family Medicine; Referring Provider Obstetrics & Gynecology; Visit Provider Obstetrics & Gynecology
DX: E86.0 Dehydration (principal)
CPT/HCPCS: 96361; 96374; A4216; J2405

== ENCOUNTER 2025-07-27 12:28 | Outpatient (CLI) | payer BC, SELFPAY ==
[2025-07-27 13:37] VITALS: BP 101/78; PULSE 81; RESP 16; O2SAT 100
[2025-07-27] MEDS: 0.9% NaCl Peripheral Flush Adult IV ×2 (13:40→14:51)
== END 2025-07-27 23:59 | disposition home or self-care (01) ==
LOC: MEDOUTP 12:28
PROVIDERS: PCP Family Medicine; Referring Provider Obstetrics & Gynecology; Visit Provider Obstetrics & Gynecology
DX: O99.891 Other specified diseases and conditions complicating pregnancy (principal); E86.0 Dehydration; O21.0 Mild hyperemesis gravidarum; O99.280 Endocrine, nutritional and metabolic diseases complicating pregnancy, unspecified trimester; Z3A.00 Weeks of gestation of pregnancy not specified
CPT/HCPCS: 96361; 96374; 96375; A4216; J2405